=== PATIENT | female | born 1975 | race Hispanic/Latino ===

== ENCOUNTER 2017-01-19 07:57 | Day surgery (SDC) | payer OTHER ==
[2017-01-15 12:20] VITALS: BMI 27.3
[2017-01-19] MEDS ORDERED: Lactated Ringer's 1,000 ML IV ONE (08:35)
[2017-01-19] MEDS ORDERED: ACETIC ACID 3% 30 ML LIQUID MC ONE (10:02)
[2017-01-19] MEDS ORDERED: Strong Iodine Topical Sol. 5%-10% ONE (10:02)
[2017-01-19] MEDS ORDERED: Ferric Subsulfate Sol(60 mL) ONE (10:02)
[2017-01-19] MEDS ORDERED: Midazolam 2 MG/2 ML VIAL ONE (10:06)
[2017-01-19] MEDS ORDERED: Propofol 10 mg/ml Inj (20 ML) ONE (10:06)
[2017-01-19] MEDS ORDERED: Labetalol 5mg/ml (4ml) ONE (10:10)
--- NOTE | 2017-01-19 10:15 | CP.SDSHP ---
Same Day Surgery H & P - History Proposed Procedure: LEEP Pre-Op Diagnosis: cervical dysplasia - Allergies Allergies: Allergies No Known Allergies Allergy (Verified 01/15/17 12:20) - Physical Exam Vital Signs: Vital Signs 01/19/17 01/19/17 08:16 08:19 Temperature 98.7 F Pulse Rate 83 83 Respiratory 20 Rate Blood Pressure 126/63 O2 Sat by Pulse 96 Oximetry Mental Status: Alert & Oriented x3 Neuro: WNL Heart: WNL Lungs: WNL GI: WNL - {Optional Preform as Required} Breast: WNL Abdomen: WNL ACCOUNTING MACHINE OPERATOR: WNL - Impression Pt. Evaluated Today:Candidate for Anesthesia & Procedure: Yes - Date & Time Date: 01/19/17 Time: 10:14 Short Stay Discharge - Short Stay Discharge Admitting Diagnosis/Reason for Visit: R87.810 Referrals: FAMILY PROVIDER,NO [Primary Care Provider] - Follow-up: Pt to follow up in 2 wks in office
[2017-01-19] MEDS ORDERED: Strong Iodine Topical Sol. 5%-10% TOP ONE ×2 (11:02)
[2017-01-19] MEDS ORDERED: Ferric Subsulfate Sol(60 mL) TP ONE (11:17)
[2017-01-19] MEDS ORDERED: Lactated Ringer's 1,000 ML IV SCH (11:33)
[2017-01-19] MEDS ORDERED: Oxycodone/Acetaminophen 5/325 mg Tab PO PRN (11:33)
[2017-01-19] MEDS ORDERED: HYDROmorphone 0.5 mg/0.5 ml ISec IVP PRN (12:12)
[2017-01-19] MEDS ORDERED: HYDROmorphone 0.5 mg/0.5 ml ISec ONE (12:14)
[2017-01-19 12:18] VITALS: O2SAT 99
[2017-01-19 13:24] VITALS: BP 109/62; PULSE 62; RESP 18; TEMP 97.9
--- NOTE | 2017-01-20 03:09 | OP ---
PROCEDURE DATE: 01/19/2017 PREOPERATIVE DIAGNOSIS: Cervical dysplasia. POSTOPERATIVE DIAGNOSIS: Cervical dysplasia. PROCEDURE: LEEP procedure. SURGEON: Dr. Azra Petty. TYPE OF ANESTHESIA: LMA ANESTHESIA ADMINISTERED BY: Dr. Reza. TOTAL IV FLUID INTAKE: 500 mL of Lactated Ringer's. ESTIMATED BLOOD LOSS: 25 mL. URINE OUTPUT: 25 mL, clear urine. COMPLICATIONS: None. CONDITION: Stable. SPECIMEN: Ectocervix and endocervix with cyst at 12 o'clock positions. DESCRIPTION OF PROCEDURE: After all consents were signed and all questions answered, the patient was brought into the procedure room and placed in dorsal lithotomy position. Patient had IV fluids running and was placed under generalized anesthesia without difficulty. A grounding leg pad was placed on the patient's leg. Under sterile condition, an inflated speculum was placed in the patient's vagina. Smoke evacuator tubing was connected to the speculum. The Lugol solution was applied to the cervix to further outline the LEEP field. The LEEP unit was adjusted to blend the power setting. A LEEP loop of 20 mm x 15 mm with the use of the exocervix was selected. Specimen was removed and the cyst is placed at 10 o'clock position. An additional 10 mm x 10 mm endocervix was selected. The LEEP procedure was performed exercising the cone portion of the cervix extending beyond the margins of the Lugol's unstained area without issues and the specimen was placed in the formalin jar after tagging at 12 o'clock position. Bleeding was cauterized with ball-tip probe and Monsel solution. Bolus was about 25 mL. Reinspection of the cervix prior to terminating the procedure found the cervix to be hemostatic. All instruments were removed from the vagina. All counts are correct. The patient was awoken from anesthesia without difficulty, was taken to recovery room in stable condition. There were no other complications. Azra Petty MD
== END 2017-01-19 13:30 | disposition home or self-care (01) ==
LOC: H.OPSURG 07:57
PROVIDERS: ATTEND Obstetrics & Gynecology
DX: R87.810 Cervical high risk human papillomavirus (HPV) DNA test positive (principal)
CPT/HCPCS: 57522; 88305; J1170; J2250; J2405; J2704; J3010; J7030; J7120

== ENCOUNTER 2017-02-18 17:56 | Inpatient (IN) | payer OTHER ==
[2017-02-18 17:56] VITALS: BMI 27.3
--- NOTE | 2017-02-18 18:30 | ED PDOC ---
HPI: General Adult Time Seen by Provider: 02/18/17 18:08 Chief Complaint (Nursing): Fever Chief Complaint (Provider): Fever History Per: Patient Additional Complaint(s): 41 yo female, no PMH, presents to ED with complaints of fever, t.max, 103 x 2 weeks now. pt rpeorts that 2 weeks ago she underwent a Leep procedure, developed LLQ pain soon after and then followed up with her OB who prescribed her Doxy for 10 days. pt is on day 810 and pain has resolved; however, fevers, fatigue and body aches continue. Pt presented to urgent Care earlier today who gave her 2 Tyenol and advised ED visit. Past Medical History Reviewed: Nursing Documentation, Vital Signs Vital Signs: Last Vital Signs Temp 101.7 F H 02/18/17 18:03 Pulse 108 H 02/18/17 18:03 Resp 18 02/18/17 18:03 BP 109/65 02/18/17 18:03 Pulse Ox 97 02/18/17 18:34 - Medical History PMH: No Chronic Diseases Denies: Anemia, Chronic Kidney Disease - Family History Family History: States: Unknown Family Hx - Living Arrangements Living Arrangements: With Family - Social History Current smoker - smoking cessation education provided: No Alcohol: Social Drugs: Denies - Home Medications Home Medications: Ambulatory Orders Medication Instructions Recorded oxyCODONE/Acetaminophen [Percocet 1 mg PO Q4 PRN 01/19/17 5/325 mg Tab] - Allergies Allergies/Adverse Reactions: Allergies Allergy/AdvReac Type Severity Reaction Status Date / Time No Known Allergies Allergy Verified 02/18/17 18:01 Review of Systems ROS Statement: Except As Marked, All Systems Reviewed And Found Negative Constitutional: Positive for: Fever Physical Exam - Reviewed Nursing Documentation Reviewed: Yes Vital Signs Reviewed: Yes - Physical Exam Appears: Positive for: Well, Non-toxic, No Acute Distress Head Exam: Positive for: ATRAUMATIC, NORMAL INSPECTION, NORMOCEPHALIC Skin: Positive for: Normal Color, Warm, DRY Eye Exam: Positive for: EOMI, Normal appearance, PERRL ENT: Positive for: Normal ENT Inspection Neck: Positive for: Normal, Painless ROM Cardiovascular/Chest: Positive for: Regular Rate, Rhythm Respiratory: Positive for: CNT, Normal Breath Sounds Gastrointestinal/Abdominal: Positive for: Normal Exam, Bowel Sounds, Soft Back: Positive for: Normal Inspection Extremity: Positive for: Normal ROM Neurologic/Psych: Positive for: Alert, Oriented - Laboratory Results Result Diagrams: 02/18/17 18:30 02/18/17 18:54 - ECG O2 Sat by Pulse Oximetry: 97 Medical Decision Making Medical Decision Making: IV access established and diagnostics ordered Pt febrile at 101.7 Tachy at 108 WBC 21. 9 Lactate WNL K 3.0. Potassium IV and PO administered. IVF running. Pt meets SIRS criteria case enodrsed to [facility] at 1999 pending diagnotic review and re-eval. Disposition - Clinical Impression Clinical Impression: Fever - Patient ED Disposition Is Patient to be Admitted: Transfer of Care - Disposition Disposition: Transfer of Care Disposition Time: 20:00 Condition: FAIR Forms: [facility] (Serbian) - POA Present On Arrival: None
[2017-02-18] MEDS ORDERED: Sodium Chloride 0.9% 1,000 ML IV STA (18:31)
[2017-02-18 18:55] LABS: VENOUS BLOOD GAS PCO2 31 mmHg (40-60); VENOUS BLOOD PH 7.49 (7.32-7.43)
[2017-02-18 19:04] LABS: BASO % 0.2 % (0.0-2.0); HEMATOCRIT 28.4 % (34.0-47.0); LYMPH # 2.1 K/uL (1.0-4.3); LYMPH % 9.5 % (20.0-40.0); MEAN CELL VOLUME 84.4 fl (81.0-99.0); MEAN CORPUSCULAR HEMOGLOBIN 27.5 pg (27.0-31.0); MEAN CORPUSCULAR HGB CONC 32.6 g/dL (33.0-37.0); MEAN PLATELET VOLUME 6.9 fl (7.2-11.7); MONO # 1.4 K/uL (0.0-0.8); MONO % 6.2 % (0.0-10.0); NEUT # 18.4 K/uL (1.8-7.0); NEUT % 84.1 % (50.0-75.0); PLATELET COUNT 586 K/uL (130-400); RED CELL DISTRIBUTION WIDTH 16.4 % (11.5-14.5); WHITE BLOOD COUNT 21.9 K/uL (4.8-10.8)
[2017-02-18 19:10] LABS: ALB/GLOB RATIO 1.1 (1.0-2.1); ALKALINE PHOSPHATASE 139 U/L (38-126); ALT/SGPT 54 U/L (9-52); AST/SGOT 79 U/L (14-36); BILIRUBIN,TOTAL 0.7 mg/dl (0.2-1.3); BLOOD UREA NITROGEN 6 mg/dl (7-17); CALCIUM 9.3 mg/dL (8.4-10.2); CARBON DIOXIDE 23 mmol/L (22-30); CHLORIDE 97 mmol/L (98-107); GFR AFRICAN-AMERICAN > 60; GLUCOSE,RANDOM 106 mg/dL (65-105); SODIUM 136 mmol/l (132-148); TOTAL PROTEIN 7.1 G/DL (6.3-8.2)
[2017-02-18] MEDS ORDERED: Potassium Chloride 20 mEq ER Tab PO ONE ×2 (19:36→19:51)
[2017-02-18] MEDS ORDERED: Potassium CL 10 MEQ/50 ML 50 ML IVPB ONE (19:36)
[2017-02-18] MEDS ORDERED: Iohexol 240 (50 ml) PO ONE (19:37)
[2017-02-18] MEDS ORDERED: Iohexol 240 (50 ml) ONE (19:50)
[2017-02-18 21:02] LABS: LARGE PLATELETS PRESENT; NEUTROPHIL 87 % (42-75); TOTAL CELLS COUNTED 100
[2017-02-18 21:08] LABS: RBC URINE 2 /hpf (0-3); URINE BACTERIA RARE (<OCC); URINE BILIRUBIN NEGATIVE (NEGATIVE); URINE BLOOD NEGATIVE (NEGATIVE); URINE COLOR STRAW (YELLOW); URINE GLUCOSE (UA) NEG (Normal); URINE KETONE NEGATIVE (NEGATIVE); URINE LEUKOCYTE ESTERASE NEG Leu/uL (Negative); URINE PROTEIN NEGATIVE (NEGATIVE); URINE UROBILINOGEN 0.2-1.0 mg/dL (0.2-1.0); WBC URINE 2 /hpf (0-5)
[2017-02-18] MEDS ORDERED: Iohexol 300 100 ML IJ ONE (21:32)
[2017-02-18] MEDS ORDERED: Sodium Chloride 0.9% 50 ML IV ONE (21:33)
--- NOTE | 2017-02-18 22:16 | US ---
EXAM: US Pelvis Complete, Transabdominal CLINICAL HISTORY: 41 years old, female; Pain; Pelvic pain; Additional info: Pelvic pain S/P leep procedure TECHNIQUE: Real-time transabdominal pelvic ultrasound (complete) with image documentation. COMPARISON: No relevant prior studies available. FINDINGS: Uterus/cervix: Uterus measures 9.7 x 3.0 x 4.6 cm in size. No myometrial mass. Endometrium: 1.2 cm in thickness. Right ovary: 2.1 x 1.3 x 2.5 cm in size. No mass. Normal flow. Left ovary: 11.8 x 10.3 x 11.5 cm in size. 11.0 x 8.9 x 10.7 cm hypoechoic lesion with septations and internal echoes. Normal flow. Free fluid: No significant free fluid. Bladder: Unremarkable as visualized. IMPRESSION: 1. LEFT ovarian lesion, indeterminate. Given large size, suggest MRI or surgical evaluation.
--- NOTE | 2017-02-18 22:28 | ED PDOC ---
- Laboratory Results Result Diagrams: 02/18/17 18:30 02/18/17 18:54 - ECG O2 Sat by Pulse Oximetry: 97 - Radiology X-Ray: Viewed By Me X-Ray Interpretation: No Acute Disease - Progress ED Course And Treament: Case endorsed to sba underwriter from [employer] [employer]ERS pending labs, imaging EXAM: US Pelvis Complete, Transabdominal CLINICAL HISTORY: 41 years old, female; Pain; Pelvic pain; Additional info: Pelvic pain S/P leep procedure TECHNIQUE: Real-time transabdominal pelvic ultrasound (complete) with image documentation. COMPARISON: No relevant prior studies available. FINDINGS: Uterus/cervix: Uterus measures 9.7 x 3.0 x 4.6 cm in size. No myometrial mass. Endometrium: 1.2 cm in thickness. Right ovary: 2.1 x 1.3 x 2.5 cm in size. No mass. Normal flow. Left ovary: 11.8 x 10.3 x 11.5 cm in size. 11.0 x 8.9 x 10.7 cm hypoechoic lesion with septations and internal echoes. Normal flow. Free fluid: No significant free fluid. Bladder: Unremarkable as visualized. IMPRESSION: 1. LEFT ovarian lesion, indeterminate. Given large size, suggest MRI or surgical evaluation. EXAM: CT Abdomen and Pelvis With Intravenous Contrast CLINICAL HISTORY: 41 years old, female; Signs and symptoms; Fever; Prior surgery; Surgery date: 6 + months; Surgery type: Benign abd. Tumor removed in 2008; Patient HX: Benign tumor; Additional info: Fever and abdominal pain TECHNIQUE: Axial computed tomography images of the abdomen and pelvis with intravenous contrast. All CT scans at this facility use one or more dose reduction techniques, viz.: automated exposure control; ma/kV adjustment per patient size (including targeted exams where dose is matched to indication; i.e. head); or iterative reconstruction technique. Coronal and sagittal reformatted images were created and reviewed. CONTRAST: 90 mL of [id number] administered intravenously. COMPARISON: CT - ABDOMEN^ABD_ROUTINE_WO_W (ADULT) 12/28/2008 12:30:30 PM FINDINGS: Lower thorax: No acute findings. ABDOMEN: Liver: Few too small to characterize lesions, new in interval. Gallbladder and bile ducts: No calcified stones. No ductal dilation. Pancreas: No ductal dilation. No mass. Spleen: No splenomegaly. Adrenals: No mass. Kidneys and ureters: No mass. No hydronephrosis. Stomach and bowel: No definite mural thickening. No obstruction. Appendix: Normal caliber. No inflammation. PELVIS: Bladder: Unremarkable. Reproductive: 10.0 x 10.5 x 11.4 cm septated hypodense lesion with peripheral enhancement within LEFT adnexal region. Adjacent tubular structure with peripheral enhancement with apparent communication with aforementioned lesion. ABDOMEN and PELVIS: Intraperitoneal space: Trace free fluid within pelvis. No free air. Bones/joints: No acute fracture. Soft tissues: Unremarkable. Vasculature: Postsurgical changes about IVC. No aneurysm. Lymph nodes: Borderline enlarged lymph node within paraaortic region. IMPRESSION: 1. LEFT adnexal lesion, indeterminate. DDX: Hemorrhagic cyst, endometrioma, TOA , neoplasm. Adjacent tubular structure which may represent dilated fallopian tube may favor TOA. Gynecological consultation is recommended. 2. Liver lesions, new in interval. Suggest MRI. 3. Incidental/non-acute findings are described above. Case discussed with Dr. Rosas, Forest [employer] Instructor on-call; recommends IV antibiotics and admission. IV doxycycline, IV cefoxitin doses ordered in ED. Disposition - Clinical Impression Clinical Impression: TOA (tubo-ovarian abscess), Ovarian cyst - POA Present On Arrival: None - Disposition Disposition: Admitted as In-Patient Disposition Time: 00:20 Condition: FAIR
--- NOTE | 2017-02-18 23:30 | CT ---
EXAM: CT Abdomen and Pelvis With Intravenous Contrast CLINICAL HISTORY: 41 years old, female; Signs and symptoms; Fever; Prior surgery; Surgery date: 6+ months; Surgery type: Benign abd. Tumor removed in 2008; Patient HX: Benign tumor; Additional info: Fever and abdominal pain TECHNIQUE: Axial computed tomography images of the abdomen and pelvis with intravenous contrast. All CT scans at this facility use one or more dose reduction techniques, viz.: automated exposure control; ma/kV adjustment per patient size (including targeted exams where dose is matched to indication; i.e. head); or iterative reconstruction technique. Coronal and sagittal reformatted images were created and reviewed. CONTRAST: 90 mL of [id number] administered intravenously. COMPARISON: CT - ABDOMEN^ABD ROUTINE WO W (ADULT) 12/28/2008 12:30:30 PM FINDINGS: Lower thorax: No acute findings. ABDOMEN: Liver: Few too small to characterize lesions, new in interval. Gallbladder and bile ducts: No calcified stones. No ductal dilation. Pancreas: No ductal dilation. No mass. Spleen: No splenomegaly. Adrenals: No mass. Kidneys and ureters: No mass. No hydronephrosis. Stomach and bowel: No definite mural thickening. No obstruction. Appendix: Normal caliber. No inflammation. PELVIS: Bladder: Unremarkable. Reproductive: 10.0 x 10.5 x 11.4 cm septated hypodense lesion with peripheral enhancement within LEFT adnexal region. Adjacent tubular structure with peripheral enhancement with apparent communication with aforementioned lesion. ABDOMEN and PELVIS: Intraperitoneal space: Trace free fluid within pelvis. No free air. Bones/joints: No acute fracture. Soft tissues: Unremarkable. Vasculature: Postsurgical changes about IVC. No aneurysm. Lymph nodes: Borderline enlarged lymph node within paraaortic region. IMPRESSION: 1. LEFT adnexal lesion, indeterminate. DDX: Hemorrhagic cyst, endometrioma, TOA, neoplasm. Adjacent tubular structure which may represent dilated fallopian tube may favor TOA. Gynecological consultation is recommended. 2. Liver lesions, new in interval. Suggest MRI. 3. Incidental/non-acute findings are described above.
[2017-02-18] MEDS ORDERED: cefOXitin 2 GM in Sodium Chloride 0.9% 100 ML IVPB STA (23:45)
--- NOTE | 2017-02-19 00:14 | CP.PCM.HP ---
History of Present Illness - History of Present Illness History of Present Illness: The patient is a 41-year-old female who presents to her [facility] complaining of fever of 103 for several days' duration. Patient states she had a LEEP procedure done on January 19 states she felt well had a postoperative visit which was normal. Patient states she is undergoing fertility treatment underwent a transvaginal sonogram started to develop lower abdominal pain. Patient states that after she started to develop low grade temperatures and fever. Patient states her PMD was prescribed doxycycline patient states fever has persisted so she presented to the emergency room this evening Present on Admission - Present on Admission Any Indicators Present on Admission: No Past Patient History - Past Medical History & Family History Past Medical History?: Yes - Past Social History Alcohol: Social Drugs: Denies - CARDIAC Hx Cardiac Disorders: No - PULMONARY Hx Respiratory Disorders: No - NEUROLOGICAL Hx Neurological Disorder: No - HEENT Hx HEENT Problems: No - RENAL Hx Chronic Kidney Disease: No - ENDOCRINE/METABOLIC Hx Endocrine Disorders: No - HEMATOLOGICAL/ONCOLOGICAL Hx Anemia: No - INTEGUMENTARY Hx Dermatological Problems: No - MUSCULOSKELETAL/RHEUMATOLOGICAL Hx Musculoskeletal Disorders: No - GASTROINTESTINAL Hx Gastrointestinal Disorders: No - GENITOURINARY/GYNECOLOGICAL Hx Genitourinary Disorders: No - PSYCHIATRIC Hx Psychophysiologic Disorder: No Hx Substance Use: No - SURGICAL HISTORY Hx Surgeries: Yes Other/Comment: REMOVAL OF ABDOMINAL TUMOR-2002 - ANESTHESIA Hx Anesthesia: Yes Hx Anesthesia Reactions: No Hx Malignant Hyperthermia: No Meds Allergies/Adverse Reactions: Allergies Allergy/AdvReac Type Severity Reaction Status Date / Time No Known Allergies Allergy Verified 02/18/17 18:01 Physical Exam - Respiratory Exam Respiratory Exam: Clear to Auscultation Bilateral - Cardiovascular Exam Cardiovascular Exam: REGULAR RHYTHM - GI/Abdominal Exam GI & Abdominal Exam: Normal Bowel Sounds, Soft - Exam Speculum exam: Cervical Discharge Additional comments: No adnexal fullness and tenderness copious creamy vaginal discharge - Extremities Exam Extremities exam: Positive for: normal inspection Results - Vital Signs Recent Vital Signs: Last Vital Signs Temp 98.4 F 02/18/17 21:56 Pulse 108 H 02/18/17 18:03 Resp 18 02/18/17 18:03 BP 109/65 02/18/17 18:03 Pulse Ox 97 02/19/17 00:10 - Labs Result Diagrams: 02/18/17 18:30 02/18/17 18:54 Labs: Laboratory Results - last 24 hr 02/18/17 02/18/17 02/18/17 18:30 18:48 18:54 WBC 21.9 H RBC 3.36 L Hgb 9.2 L Hct 28.4 L MCV 84.4 MCH 27.5 MCHC 32.6 L RDW 16.4 H Plt Count 586 H MPV 6.9 L Neut % (Auto) 84.1 H Lymph % (Auto) 9.5 L [place] % (Auto) 6.2 Eos % (Auto) 0.0 Baso % (Auto) 0.2 Neut # 18.4 H Lymph # 2.1 [place] # 1.4 H Eos # 0.0 Baso # 0.0 Neutrophils % (Manual) 87 H Band Neutrophils % 1 Lymphocytes % (Manual) 8 L Monocytes % (Manual) 4 Platelet Estimate Markedly increased H Large Platelets Present Hypochromasia (manual) Slight Poikilocytosis (manual Moderate Anisocytosis (manual) Moderate Microcytosis (manual) Slight pO2 50 VBG pH 7.49 H VBG pCO2 31 L VBG HCO3 25.5 VBG Total CO2 24.6 VBG O2 Sat (Calc) 89.5 H VBG Base Excess 1.0 VBG Potassium 3.0 L Sodium 131.0 L 136 Chloride 97.0 L 97 L Glucose 113 H Lactate 0.8 FiO2 21.0 Potassium 3.0 L Carbon Dioxide 23 Anion Gap 19 BUN 6 L Creatinine 0.7 Est GFR ( Amer) > 60 Est GFR (Non-Af Amer) > 60 Random Glucose 106 H Calcium 9.3 Total Bilirubin 0.7 AST 79 H ALT 54 H Alkaline Phosphatase 139 H Total Protein 7.1 Albumin 3.7 Globulin 3.4 Albumin/Globulin Ratio 1.1 Venous Blood Potassium 3.0 L Urine Color Urine Clarity Urine pH Ur Specific [place] Urine Protein Urine Glucose (UA) Urine Ketones Urine Blood Urine Nitrate Urine Bilirubin Urine Urobilinogen Ur Leukocyte Esterase Urine RBC (Auto) Urine Microscopic WBC Ur Squamous Epith Cells Urine Bacteria Influenza Typ A,B (EIA) 02/18/17 02/18/17 20:26 20:35 WBC RBC Hgb Hct MCV MCH MCHC RDW Plt Count MPV Neut % (Auto) Lymph % (Auto) [place] % (Auto) Eos % (Auto) Baso % (Auto) Neut # Lymph # [place] # Eos # Baso # Neutrophils % (Manual) Band Neutrophils % Lymphocytes % (Manual) Monocytes % (Manual) Platelet Estimate Large Platelets Hypochromasia (manual) Poikilocytosis (manual Anisocytosis (manual) Microcytosis (manual) pO2 VBG pH VBG pCO2 VBG HCO3 VBG Total CO2 VBG O2 Sat (Calc) VBG Base Excess VBG Potassium Sodium Chloride Glucose Lactate FiO2 Potassium Carbon Dioxide Anion Gap BUN Creatinine Est GFR ( Amer) Est GFR (Non-Af Amer) Random Glucose Calcium Total Bilirubin AST ALT Alkaline Phosphatase Total Protein Albumin Globulin Albumin/Globulin Ratio Venous Blood Potassium Urine Color Straw Urine Clarity Clear Urine pH 7.0 Ur Specific [place] < 1.005 Urine Protein Negative Urine Glucose (UA) Neg Urine Ketones Negative Urine Blood Negative Urine Nitrate Negative Urine Bilirubin Negative Urine Urobilinogen 0.2-1.0 Ur Leukocyte Esterase Neg Urine RBC (Auto) 2 Urine Microscopic WBC 2 Ur Squamous Epith Cells 1 Urine Bacteria Rare Influenza Typ A,B (EIA) Negative for flu a/b Assessment & Plan - Assessment and Plan (Free Text) Assessment: 41-year-old female with tubo-ovarian abscess Genital cultures obtained IV antibiotics Plan conservative management - Date & Time Date: 02/19/17 Time: 00:15
[2017-02-19] MEDS ORDERED: Oxycodone/Acetaminophen 5/325 mg Tab PO PRN (00:26)
[2017-02-19] MEDS ORDERED: Lactated Ringer's 1,000 ML IV SCH (00:30)
[2017-02-19 00:50] LABS: VENOUS BLOOD GAS BASE EXCESS -0.1 mmol/L (0.0-2.0); VENOUS BLOOD GAS PCO2 36 mmHg (40-60); VENOUS BLOOD PH 7.43 (7.32-7.43)
[2017-02-19] MEDS: Lactated Ringer's 1,000 ML IV SCH (01:41)
[2017-02-19] MEDS ORDERED: cefOXitin Sodium 1 GM in Sodium Chloride 0.9% 100 ML IVPB SCH (04:00)
--- NOTE | 2017-02-19 08:30 | RAD ---
HISTORY: Medical screening. COMPARISON: No prior. TECHNIQUE: Chest PA and lateral FINDINGS: LUNGS: No active pulmonary disease. PLEURA: No significant pleural effusion identified. No pneumothorax apparent. CARDIOVASCULAR: Normal. OSSEOUS STRUCTURES: No significant abnormalities. VISUALIZED UPPER ABDOMEN: Normal. OTHER FINDINGS: None. IMPRESSION: No active disease. Please note: No preliminary report/ innterpretation of this examination provided by emergency department personnel.
[2017-02-19] MEDS: cefOXitin Sodium 1 GM in Sodium Chloride 0.9% 100 ML IVPB SCH ×3 (09:11→21:42)
--- NOTE | 2017-02-19 09:22 | CP.PCM.PN ---
Subjective - Date & Time of Evaluation Date of Evaluation: 02/19/17 Time of Evaluation: 09:20 - Subjective Subjective: Pt is tolerating regular diet, ambulating, denies pain and wants to go home Objective - Vital Signs/Intake and Output Vital Signs (last 24 hours): Temp Pulse Resp BP Pulse Ox 98.2 F 91 H 18 109/66 97 02/19/17 07:43 02/19/17 07:43 02/19/17 07:43 02/19/17 07:43 02/19/17 07:43 - Medications Medications: Current Medications Acetaminophen (Tylenol 325mg Tab) 650 mg PO Q4 PRN PRN Reason: Fever >100.4 F Doxycycline Hyclate 100 mg/ (Sodium Chloride) 100 mls @ 100 mls/hr IVPB Q12 [facility] Last Admin: 02/19/17 01:52 Dose: Not Given Lactated Ringer's (Lactated Ringer's 500ml) 1,000 mls @ 125 mls/hr IV .Q8H [facility] Last Admin: 02/19/17 01:41 Dose: 125 mls/hr Cefoxitin Sodium 1 gm/ Sodium (Chloride) 100 mls @ 100 mls/hr IVPB 0200,0800, 1400,2000 [facility] Stop: 02/19/17 20:59 Last Admin: 02/19/17 09:11 Dose: 100 mls/hr Oxycodone/Acetaminophen (Percocet 5/325 Mg Tab) 1 tab PO Q4 PRN PRN Reason: Pain, Mild (1-3) Stop: 02/22/17 00:27 - Labs Labs: 02/18/17 18:30 02/18/17 18:54 - Constitutional Appears: Well, Non-toxic - GI/Abdominal Exam GI & Abdominal Exam: Soft, Normal Bowel Sounds Additional comments: Nontender - Extremities Exam Additional comments: Nontender Assessment and Plan - Assessment and Plan (Free Text) Assessment: 41 yo admitted w/ fever and TOA receiving IV cefoxitin and Doxycycline Pt is tolerating regular diet
[2017-02-19 09:39] LABS: MEAN CELL VOLUME 84.6 fl (81.0-99.0); MEAN CORPUSCULAR HEMOGLOBIN 28.2 pg (27.0-31.0); MEAN CORPUSCULAR HGB CONC 33.3 g/dL (33.0-37.0); RED CELL DISTRIBUTION WIDTH 16.4 % (11.5-14.5); WHITE BLOOD COUNT 16.8 K/uL (4.8-10.8)
[2017-02-20] MEDS: Lactated Ringer's 1,000 ML IV SCH ×2 (01:53→09:52)
--- NOTE | 2017-02-20 11:56 | CP.PCM.PN ---
Subjective - Date & Time of Evaluation Date of Evaluation: 02/20/17 Time of Evaluation: 10:30 - Subjective Subjective: She feels fine ex for chills last night when she had fever 100.6 and 100.9. Tolerating po intake. No abd pain Objective - Vital Signs/Intake and Output Vital Signs (last 24 hours): Temp Pulse Resp BP Pulse Ox 98.5 F 77 20 97/65 L 99 02/20/17 08:32 02/20/17 08:32 02/20/17 08:32 02/20/17 08:32 02/20/17 08:32 - Medications Medications: Current Medications Acetaminophen (Tylenol 325mg Tab) 650 mg PO Q4 PRN PRN Reason: Fever >100.4 F Last Admin: 02/20/17 00:28 Dose: 650 mg Doxycycline Hyclate 100 mg/ (Sodium Chloride) 100 mls @ 100 mls/hr IVPB Q12 [facility] Last Admin: 02/20/17 08:23 Dose: 100 mls/hr Lactated Ringer's (Lactated Ringer's 500ml) 1,000 mls @ 125 mls/hr IV .Q8H [facility] Last Admin: 02/20/17 09:52 Dose: Not Given Oxycodone/Acetaminophen (Percocet 5/325 Mg Tab) 1 tab PO Q4 PRN PRN Reason: Pain, Mild (1-3) Stop: 02/22/17 00:27 - Labs Labs: 02/19/17 08:00 02/18/17 18:54 - Constitutional Appears: Non-toxic - Head Exam Head Exam: NORMAL INSPECTION - Respiratory Exam Respiratory Exam: NORMAL BREATHING PATTERN - GI/Abdominal Exam GI & Abdominal Exam: Soft. absent: Tenderness Assessment and Plan (1) Pelvic mass in female Status: Acute - Assessment and Plan (Free Text) Assessment: TOA vs endometrioma Fever Plan: On IV antibotics...will obtain ID consultation and check CBC today...Will speak with Shira Chu with patient about plan. She understands and agrees
[2017-02-20 12:28] LABS: BASO % 0.4 % (0.0-2.0); EOS % 0.3 % (0.0-4.0); HEMATOCRIT 28.8 % (34.0-47.0); LYMPH # 1.7 K/uL (1.0-4.3); LYMPH % 13.6 % (20.0-40.0); MEAN CELL VOLUME 84.6 fl (81.0-99.0); MEAN CORPUSCULAR HEMOGLOBIN 27.6 pg (27.0-31.0); MEAN CORPUSCULAR HGB CONC 32.6 g/dL (33.0-37.0); MEAN PLATELET VOLUME 6.4 fl (7.2-11.7); MONO # 0.8 K/uL (0.0-0.8); MONO % 6.3 % (0.0-10.0); NEUT # 10.1 K/uL (1.8-7.0); NEUT % 79.4 % (50.0-75.0); RED CELL DISTRIBUTION WIDTH 16.3 % (11.5-14.5); WHITE BLOOD COUNT 12.8 K/uL (4.8-10.8)
--- NOTE | 2017-02-20 13:03 | CP.PCM.CON ---
History of Present Illness - History of Present Illness History of Present Illness: Infectious Disease Consult Note- asked to see this patient at the request of staff counsel for help with antibiotic management in ? TOA. 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 Pt. states past few days she has had no appetite but today she feels better and did eat some food. pt. had CT done which as per report shows ? TOA and hence i'm asked to help with antibiotic management. denies any nausea. Allergy- NKDA Review of Systems - Review of Systems Review of Systems: ROS- + fever and chills , ahd nausea but not now, denies any cough, denies any sob, denies any chest pain, + lower abd/pelvic pain , denies any diarrhea, denies any dysurea, + vaginal discharge Past Patient History - Past Medical History & Family History Past Medical History?: Yes - Past Social History Smoking Status: Never Smoked Alcohol: Occasional Drugs: Denies - CARDIAC Hx Cardiac Disorders: No - PULMONARY Hx Respiratory Disorders: No - NEUROLOGICAL Hx Neurological Disorder: No - HEENT Hx HEENT Problems: No - RENAL Hx Chronic Kidney Disease: No - ENDOCRINE/METABOLIC Hx Endocrine Disorders: No - HEMATOLOGICAL/ONCOLOGICAL Hx Blood Disorders: No - INTEGUMENTARY Hx Dermatological Problems: No - MUSCULOSKELETAL/RHEUMATOLOGICAL Hx Falls: No - GASTROINTESTINAL Hx Gastrointestinal Disorders: No - GENITOURINARY/GYNECOLOGICAL Hx Genitourinary Disorders: No - PSYCHIATRIC Hx Substance Use: No - SURGICAL HISTORY Hx Surgeries: Yes Other/Comment: REMOVAL OF ABDOMINAL TUMOR-2002 - ANESTHESIA Hx Anesthesia: Yes Hx Anesthesia Reactions: No Hx Malignant Hyperthermia: No Meds Allergies/Adverse Reactions: Allergies Allergy/AdvReac Type Severity Reaction Status Date / Time No Known Allergies Allergy Verified 02/18/17 18:01 - Medications Medications: Current Medications Acetaminophen (Tylenol 325mg Tab) 650 mg PO Q4 PRN PRN Reason: Fever >100.4 F Last Admin: 02/20/17 00:28 Dose: 650 mg Doxycycline Hyclate 100 mg/ (Sodium Chloride) 100 mls @ 100 mls/hr IVPB Q12 [facility] Last Admin: 02/20/17 08:23 Dose: 100 mls/hr Lactated Ringer's (Lactated Ringer's 500ml) 1,000 mls @ 125 mls/hr IV .Q8H [facility] Last Admin: 02/20/17 09:52 Dose: Not Given Oxycodone/Acetaminophen (Percocet 5/325 Mg Tab) 1 tab PO Q4 PRN PRN Reason: Pain, Mild (1-3) Stop: 02/22/17 00:27 Physical Exam - Constitutional Appears: No Acute Distress - Head Exam Head Exam: ATRAUMATIC - Eye Exam Eye Exam: EOMI, PERRL - ENT Exam ENT Exam: Normal Oropharynx - Neck Exam Neck exam: Positive for: Full Rom - Respiratory Exam Respiratory Exam: Clear to Auscultation Bilateral, NORMAL BREATHING PATTERN - Cardiovascular Exam Cardiovascular Exam: RRR, +S1, +S2 - GI/Abdominal Exam GI & Abdominal Exam: Normal Bowel Sounds, Soft Additional comments: old mid-abdominal surgical scar suprapelvic region with distention and mild tenderness to plapation No guarding, no rebound - Extremities Exam Extremities exam: Positive for: normal inspection - Neurological Exam Neurological exam: Alert, Oriented x3 Results - Vital Signs Recent Vital Signs: Last Vital Signs Temp 98.5 F 02/20/17 08:32 Pulse 77 02/20/17 08:32 Resp 20 02/20/17 08:32 BP 97/65 L 02/20/17 08:32 Pulse Ox 99 02/20/17 08:32 - Labs Result Diagrams: 02/20/17 12:00 02/18/17 18:54 Labs: Laboratory Results - last 24 hr 02/20/17 12:00 WBC 12.8 H RBC 3.41 L Hgb 9.4 L Hct 28.8 L MCV 84.6 MCH 27.6 MCHC 32.6 L RDW 16.3 H Plt Count 593 H MPV 6.4 L Neut % (Auto) 79.4 H Lymph % (Auto) 13.6 L Quay % (Auto) 6.3 Eos % (Auto) 0.3 Baso % (Auto) 0.4 Neut # 10.1 H Lymph # 1.7 Quay # 0.8 Eos # 0.0 Baso # 0.0 Laboratory Results - last 72 hr 02/18/17 02/18/17 02/18/17 18:30 18:48 18:54 WBC 21.9 H RBC 3.36 L Hgb 9.2 L Hct 28.4 L MCV 84.4 MCH 27.5 MCHC 32.6 L RDW 16.4 H Plt Count 586 H MPV 6.9 L Neut % (Auto) 84.1 H Lymph % (Auto) 9.5 L Quay % (Auto) 6.2 Eos % (Auto) 0.0 Baso % (Auto) 0.2 Neut # 18.4 H Lymph # 2.1 Quay # 1.4 H Eos # 0.0 Baso # 0.0 Neutrophils % (Manual) 87 H Band Neutrophils % 1 Lymphocytes % (Manual) 8 L Monocytes % (Manual) 4 Platelet Estimate Markedly increased H Large Platelets Present Hypochromasia (manual) Slight Poikilocytosis (manual Moderate Anisocytosis (manual) Moderate Microcytosis (manual) Slight pO2 50 VBG pH 7.49 H VBG pCO2 31 L VBG HCO3 25.5 VBG Total CO2 24.6 VBG O2 Sat (Calc) 89.5 H VBG Base Excess 1.0 VBG Potassium 3.0 L Sodium 131.0 L 136 Chloride 97.0 L 97 L Glucose 113 H Lactate 0.8 FiO2 21.0 Potassium 3.0 L Carbon Dioxide 23 Anion Gap 19 BUN 6 L Creatinine 0.7 Est GFR ( Amer) > 60 Est GFR (Non-Af Amer) > 60 Random Glucose 106 H Calcium 9.3 Total Bilirubin 0.7 AST 79 H ALT 54 H Alkaline Phosphatase 139 H Total Protein 7.1 Albumin 3.7 Globulin 3.4 Albumin/Globulin Ratio 1.1 Venous Blood Potassium 3.0 L Urine Color Urine Clarity Urine pH Ur Specific Stanton Urine Protein Urine Glucose (UA) Urine Ketones Urine Blood Urine Nitrate Urine Bilirubin Urine Urobilinogen Ur Leukocyte Esterase Urine RBC (Auto) Urine Microscopic WBC Ur Squamous Epith Cells Urine Bacteria Influenza Typ A,B (EIA) 02/18/17 02/18/17 02/19/17 20:26 20:35 00:41 WBC RBC Hgb Hct MCV MCH MCHC RDW Plt Count MPV Neut % (Auto) Lymph % (Auto) Quay % (Auto) Eos % (Auto) Baso % (Auto) Neut # Lymph # Quay # Eos # Baso # Neutrophils % (Manual) Band Neutrophils % Lymphocytes % (Manual) Monocytes % (Manual) Platelet Estimate Large Platelets Hypochromasia (manual) Poikilocytosis (manual Anisocytosis (manual) Microcytosis (manual) pO2 37 VBG pH 7.43 VBG pCO2 36 L VBG HCO3 24.2 VBG Total CO2 25.0 VBG O2 Sat (Calc) 71.5 H VBG Base Excess -0.1 L VBG Potassium 3.4 L Sodium 133.0 Chloride 102.0 Glucose 109 H Lactate 0.8 FiO2 21.0 Potassium Carbon Dioxide Anion Gap BUN Creatinine Est GFR ( Amer) Est GFR (Non-Af Amer) Random Glucose Calcium Total Bilirubin AST ALT Alkaline Phosphatase Total Protein Albumin Globulin Albumin/Globulin Ratio Venous Blood Potassium 3.4 L Urine Color Straw Urine Clarity Clear Urine pH 7.0 Ur Specific Stanton < 1.005 Urine Protein Negative Urine Glucose (UA) Neg Urine Ketones Negative Urine Blood Negative Urine Nitrate Negative Urine Bilirubin Negative Urine Urobilinogen 0.2-1.0 Ur Leukocyte Esterase Neg Urine RBC (Auto) 2 Urine Microscopic WBC 2 Ur Squamous Epith Cells 1 Urine Bacteria Rare Influenza Typ A,B (EIA) Negative for flu a/b 02/19/17 02/20/17 08:00 12:00 WBC 16.8 H 12.8 H RBC 3.31 L 3.41 L Hgb 9.3 L 9.4 L Hct 28.0 L 28.8 L MCV 84.6 84.6 MCH 28.2 27.6 MCHC 33.3 32.6 L RDW 16.4 H 16.3 H Plt Count 546 H 593 H MPV 6.4 L Neut % (Auto) 79.4 H Lymph % (Auto) 13.6 L Quay % (Auto) 6.3 Eos % (Auto) 0.3 Baso % (Auto) 0.4 Neut # 10.1 H Lymph # 1.7 Quay # 0.8 Eos # 0.0 Baso # 0.0 Neutrophils % (Manual) Band Neutrophils % Lymphocytes % (Manual) Monocytes % (Manual) Platelet Estimate Large Platelets Hypochromasia (manual) Poikilocytosis (manual Anisocytosis (manual) Microcytosis (manual) pO2 VBG pH VBG pCO2 VBG HCO3 VBG Total CO2 VBG O2 Sat (Calc) VBG Base Excess VBG Potassium Sodium Chloride Glucose Lactate FiO2 Potassium Carbon Dioxide Anion Gap BUN Creatinine Est GFR ( Amer) Est GFR (Non-Af Amer) Random Glucose Calcium Total Bilirubin AST ALT Alkaline Phosphatase Total Protein Albumin Globulin Albumin/Globulin Ratio Venous Blood Potassium Urine Color Urine Clarity Urine pH Ur Specific Stanton Urine Protein Urine Glucose (UA) Urine Ketones Urine Blood Urine Nitrate Urine Bilirubin Urine Urobilinogen Ur Leukocyte Esterase Urine RBC (Auto) Urine Microscopic WBC Ur Squamous Epith Cells Urine Bacteria Influenza Typ A,B (EIA) Microbiology 02/19/17 00:15 Vaginal Gram Stain - Preliminary 02/18/17 20:26 Urine,Clean Catch Urine Culture - Final No Growth (<1,000 CFU/ML) 02/18/17 20:00 Blood-Venous Blood Culture - Preliminary NO GROWTH AFTER 24 HOURS 02/18/17 18:30 Blood Blood Culture - Preliminary NO GROWTH AFTER 24 HOURS Accession No. : [id number] Patient Name / ID : KING LCAYTON Haro / [id number] Exam Date : 02/19/2017 00:06:42 ( Approved ) Study Comment : Sex / Age : F / 41Y Creator : Morgan Styles MD Dictator : Morgan Styles MD Maple Syrup Maker : Commercial Real Estate Appraiser : Morgan Styles MD Approver2 : Report Date : 02/19/2017 08:28:31 My Comment : HISTORY: Medical screening. COMPARISON: No prior. TECHNIQUE: Chest PA and lateral FINDINGS: LUNGS: No active pulmonary disease. PLEURA: No significant pleural effusion identified. No pneumothorax apparent. CARDIOVASCULAR: Normal. OSSEOUS STRUCTURES: No significant abnormalities. VISUALIZED UPPER ABDOMEN: Normal. OTHER FINDINGS: None. IMPRESSION: No active disease. Accession No. : [id number] Patient Name / ID : KING CLAYTON Haro / [id number] Exam Date : 02/18/2017 22:43:30 ( Approved ) Study Comment : Sex / Age : F / 41Y Creator : Jose Angel Lau MD Dictator : Maple Syrup Maker : Commercial Real Estate Appraiser : Jose Angel Lau MD Approver2 : Report Date : 02/18/2017 23:30:00 My Comment : [facility] Division of Radiology [address] [place] [address] Tel. no. Patient Name: CLAYTON VORA Pt. Address: [address] [place] [address] Rec #: [id number] [place] [address]: Candace Garcia Pt CELL Order Location: [facility] : 1975 Female Age: 41 Order #: [id number] Reason for exam: fever and abdominal pain CT Scan ABD PELVIS PO IV CONTRAST Exam Date: 02/18/17 This imaging exam was performed at [facility] (Formerly [facility]) EXAM: CT Abdomen and Pelvis With Intravenous Contrast CLINICAL HISTORY: 41 years old, female; Signs and symptoms; Fever; Prior surgery; Surgery date : 6+ months; Surgery type: Benign abd. Tumor removed in 2008; Patient HX: Benign tumor; Additional info: Fever and abdominal pain TECHNIQUE: Axial computed tomography images of the abdomen and pelvis with intravenous contrast. All CT scans at this facility use one or more dose reduction techniques, viz.: automated exposure control; ma/kV adjustment per patient size (including targeted exams where dose is matched to indication; i.e. head); or iterative reconstruction technique. Coronal and sagittal reformatted images were created and reviewed. CONTRAST: 90 mL of administered intravenously. COMPARISON: CT - ABDOMEN ABD ROUTINE WO W (ADULT) 12/28/2008 12:30:30 PM FINDINGS: Lower thorax: No acute findings. ABDOMEN: Liver: Few too small to characterize lesions, new in interval. Gallbladder and bile ducts: No calcified stones. No ductal dilation. Pancreas: No ductal dilation. No mass. Spleen: No splenomegaly. Adrenals: No mass. Kidneys and ureters: No mass. No hydronephrosis. Stomach and bowel: No definite mural thickening. No obstruction. Appendix: Normal caliber. No inflammation. PELVIS: Bladder: Unremarkable. Reproductive: 10.0 x 10.5 x 11.4 cm septated hypodense lesion with peripheral enhancement within LEFT adnexal region. Adjacent tubular structure with peripheral enhancement with apparent communication with aforementioned lesion. ABDOMEN and PELVIS: Intraperitoneal space: Trace free fluid within pelvis. No free air. Bones/joints: No acute fracture. Soft tissues: Unremarkable. Vasculature: Postsurgical changes about IVC. No aneurysm. Lymph nodes: Borderline enlarged lymph node within paraaortic region. IMPRESSION: 1. LEFT adnexal lesion, indeterminate. DDX: Hemorrhagic cyst, endometrioma, TOA, neoplasm. Adjacent tubular structure which may represent dilated fallopian tube may favor TOA. Gynecological consultation is recommended. 2. Liver lesions, new in interval. Suggest MRI. 3. Incidental/non-acute findings are described above. Dictated By: Jose Angel Lau MD Dictated Date/Time: 02/18/172329 Signed By: Jose Angel Lau MD Date Signed: [id number] Transcribed By: AMBAR Transcribe Date/Time : 02/18/172329 ACYP02/GEOVANNY Assessment & Plan (1) Pelvic mass in female Status: Acute (2) TOA (tubo-ovarian abscess) Status: Acute (3) Fever Status: Acute (4) Ovarian cyst Status: Acute (5) Leukocytosis Status: Acute - Assessment and Plan (Free Text) Assessment: A/P- 41 year old female with recent LEEP procedure and also recent saline trnsvaginal US done by her Infertility doctor admitted with fever and leukocytosis and vaginal discharge and pelvic pain. clinically seems to be better. still spiking fever of up to 102 blood cx- neg x 2 urine cx- neg leukocytosis trending down Ct report 1. LEFT adnexal lesion, indeterminate. DDX: Hemorrhagic cyst, endometrioma, TOA, neoplasm. Adjacent tubular structure which may represent dilated fallopian tube may favor TOA. Gynecological consultation is recommended. 2. Liver lesions, new in interval. Suggest MRI. 3. Incidental/non-acute findings are described above. A/P- above reaction perhaps secondary to the saline . certainly TOA is a possibility and would advise to continue with the doxycycline , and would also advise to add IV meropnem to cover for anerobes and gram negatives. check vaginal cx. check urien GC/chlmydia. she will need closer evaluation of the left adnexal lesion , perhaps possible Bx to rule out malignancy if it does not resolve with IV antibiotics. all above d/w patient and she verbalizes full understanding of all above. also d/w . Thank you for allowing me to take part in the care of this patient.
--- NOTE | 2017-02-20 19:54 | CP.PCM.DIS ---
Provider - Provider Date of Admission: 02/19/17 00:07 Attending physician: Keke Rosas MD Hospital Course - Lab Results Lab Results: Micro Results 02/18/17 18:30 Blood Blood Culture - Preliminary NO GROWTH AFTER 48 HOURS 02/19/17 00:15 Vaginal Gram Stain - Preliminary 02/18/17 20:26 Urine,Clean Catch Urine Culture - Final No Growth (<1,000 CFU/ML) 02/18/17 20:00 Blood-Venous Blood Culture - Preliminary NO GROWTH AFTER 24 HOURS Most Recent Lab Values WBC 12.8 K/uL (4.8-10.8) H 02/20/17 12:00 RBC 3.41 Mil/uL (3.80-5.20) L 02/20/17 12:00 Hgb 9.4 g/dL (12.0-16.0) L 02/20/17 12:00 Hct 28.8 % (34.0-47.0) L 02/20/17 12:00 MCV 84.6 fl (81.0-99.0) 02/20/17 12:00 MCH 27.6 pg (27.0-31.0) 02/20/17 12:00 MCHC 32.6 g/dL (33.0-37.0) L 02/20/17 12:00 RDW 16.3 % (11.5-14.5) H 02/20/17 12:00 Plt Count 593 K/uL (130-400) H 02/20/17 12:00 MPV 6.4 fl (7.2-11.7) L 02/20/17 12:00 Neut % (Auto) 79.4 % (50.0-75.0) H 02/20/17 12:00 Lymph % (Auto) 13.6 % (20.0-40.0) L 02/20/17 12:00 [place] % (Auto) 6.3 % (0.0-10.0) 02/20/17 12:00 Eos % (Auto) 0.3 % (0.0-4.0) 02/20/17 12:00 Baso % (Auto) 0.4 % (0.0-2.0) 02/20/17 12:00 Neut # 10.1 K/uL (1.8-7.0) H 02/20/17 12:00 Lymph # 1.7 K/uL (1.0-4.3) 02/20/17 12:00 [place] # 0.8 K/uL (0.0-0.8) 02/20/17 12:00 Eos # 0.0 K/uL (0.0-0.7) 02/20/17 12:00 Baso # 0.0 K/uL (0.0-0.2) 02/20/17 12:00 Neutrophils % (Manual) 87 % (42-75) H 02/18/17 18:30 Band Neutrophils % 1 % (0-2) 02/18/17 18:30 Lymphocytes % (Manual) 8 % (20-50) L 02/18/17 18:30 Monocytes % (Manual) 4 % (0-10) 02/18/17 18:30 Platelet Estimate Markedly increased (NORMAL) H 02/18/17 18:30 Large Platelets Present 02/18/17 18:30 Hypochromasia (manual) Slight 02/18/17 18:30 Poikilocytosis (manual Moderate 02/18/17 18:30 Anisocytosis (manual) Moderate 02/18/17 18:30 Microcytosis (manual) Slight 02/18/17 18:30 pO2 37 mm/Hg (30-55) 02/19/17 00:41 VBG pH 7.43 (7.32-7.43) 02/19/17 00:41 VBG pCO2 36 mmHg (40-60) L 02/19/17 00:41 VBG HCO3 24.2 mmol/L 02/19/17 00:41 VBG Total CO2 25.0 mmol/L (22-28) 02/19/17 00:41 VBG O2 Sat (Calc) 71.5 % (40-65) H 02/19/17 00:41 VBG Base Excess -0.1 mmol/L (0.0-2.0) L 02/19/17 00:41 VBG Potassium 3.4 mmol/L (3.6-5.2) L 02/19/17 00:41 Sodium 133.0 mmol/L (132-148) 02/19/17 00:41 Chloride 102.0 mmol/L (98-107) 02/19/17 00:41 Glucose 109 mg/dL (65-105) H 02/19/17 00:41 Lactate 0.8 mmol/L (0.7-2.1) 02/19/17 00:41 FiO2 21.0 % 02/19/17 00:41 Sodium 136 mmol/l (132-148) 02/18/17 18:54 Potassium 3.0 MMOL/L (3.6-5.0) L 02/18/17 18:54 Chloride 97 mmol/L (98-107) L 02/18/17 18:54 Carbon Dioxide 23 mmol/L (22-30) 02/18/17 18:54 Anion Gap 19 (10-20) 02/18/17 18:54 BUN 6 mg/dl (7-17) L 02/18/17 18:54 Creatinine 0.7 mg/dL (0.7-1.2) 02/18/17 18:54 Est GFR ( Amer) > 60 02/18/17 18:54 Est GFR (Non-Af Amer) > 60 02/18/17 18:54 Random Glucose 106 mg/dL (65-105) H 02/18/17 18:54 Calcium 9.3 mg/dL (8.4-10.2) 02/18/17 18:54 Total Bilirubin 0.7 mg/dl (0.2-1.3) 02/18/17 18:54 AST 79 U/L (14-36) H 02/18/17 18:54 ALT 54 U/L (9-52) H 02/18/17 18:54 Alkaline Phosphatase 139 U/L (38-126) H 02/18/17 18:54 Total Protein 7.1 G/DL (6.3-8.2) 02/18/17 18:54 Albumin 3.7 g/dL (3.5-5.0) 02/18/17 18:54 Globulin 3.4 gm/dL (2.2-3.9) 02/18/17 18:54 Albumin/Globulin Ratio 1.1 (1.0-2.1) 02/18/17 18:54 Venous Blood Potassium 3.4 mmol/L (3.6-5.2) L 02/19/17 00:41 Urine Color Straw (YELLOW) 02/18/17 20:26 Urine Clarity Clear (Clear) 02/18/17 20:26 Urine pH 7.0 (5.0-8.0) 02/18/17 20:26 Ur Specific [place] < 1.005 (1.003-1.030) 02/18/17 20:26 Urine Protein Negative mg/dL (NEGATIVE) 02/18/17 20:26 Urine Glucose (UA) Neg mg/dL (Normal) 02/18/17 20:26 Urine Ketones Negative mg/dL (NEGATIVE) 02/18/17 20:26 Urine Blood Negative (NEGATIVE) 02/18/17 20:26 Urine Nitrate Negative (NEGATIVE) 02/18/17 20:26 Urine Bilirubin Negative (NEGATIVE) 02/18/17 20:26 Urine Urobilinogen 0.2-1.0 mg/dL (0.2-1.0) 02/18/17 20:26 Ur Leukocyte Esterase Neg Virgil/uL (Negative) 02/18/17 20:26 Urine RBC (Auto) 2 /hpf (0-3) 02/18/17 20:26 Urine Microscopic WBC 2 /hpf (0-5) 02/18/17 20:26 Ur Squamous Epith Cells 1 /hpf (0-5) 02/18/17 20:26 Urine Bacteria Rare (<OCC) 02/18/17 20:26 Influenza Typ A,B (EIA) Negative for flu a/b (NEGATIVE) 02/18/17 20:35 Discharge Exam - Head Exam Head Exam: ATRAUMATIC Discharge Plan - Follow Up Plan Condition: FAIR Disposition: HOME/ ROUTINE Instructions: Fever in Adults (GEN), Ovarian Abscess (DC) Referrals: Keke Rosas MD [Staff Provider] -
--- NOTE | 2017-02-20 20:10 | CP.PCM.PN ---
<Lisa Rosas - Last Filed: 02/20/17 19:54> Subjective - Date & Time of Evaluation Date of Evaluation: 02/20/17 Time of Evaluation: 19:20 - Subjective Subjective: Informed patient wants to sign out against medical advice. Patient seen and examined at bedside, reports she received antibiotics this AM and was seen by infectious disease specialist but she does not want to stay to continue receiving IV antibiotics. Risks of leaving against medical advice (worsening infection, fever/hypotension sepsis and ) and refusing IV antibiotic treatment as recommended by ID was discussed with patient and her at bedside. Patient insisted she is understands these risks and would like to sign out AMA. Patient was instructed to continue PO antibiotics in meantime, follow up as out patient and ER precautions were reviewed (fever, persistent or worsening abdominal/pelvic pain, weakness/near syncope, nausea or vomiting). ID- Dr. Fletcher was contacted and recommended patient stay for continued IV antibiotic tx, if pt signs out AMA then send home with PO Ciprofloxacin and Doxycycline. Rx in chart. Objective - Vital Signs/Intake and Output Vital Signs (last 24 hours): Temp Pulse Resp BP Pulse Ox 97.8 F 89 18 109/68 97 02/20/17 16:53 02/20/17 16:00 02/20/17 16:00 02/20/17 16:00 02/20/17 16:00 - Medications Medications: Current Medications Acetaminophen (Tylenol 325mg Tab) 650 mg PO Q4 PRN PRN Reason: Fever >100.4 F Last Admin: 02/20/17 15:53 Dose: 650 mg Doxycycline Hyclate 100 mg/ (Sodium Chloride) 100 mls @ 100 mls/hr IVPB Q12 [facility] Last Admin: 02/20/17 08:23 Dose: 100 mls/hr Lactated Ringer's (Lactated Ringer's 500ml) 1,000 mls @ 125 mls/hr IV .Q8H [facility] Last Admin: 02/20/17 09:52 Dose: Not Given Meropenem 1 gm/ Sodium (Chloride) 100 mls @ 100 mls/hr IVPB Q8 [facility] Oxycodone/Acetaminophen (Percocet 5/325 Mg Tab) 1 tab PO Q4 PRN PRN Reason: Pain, Mild (1-3) Stop: 02/22/17 00:27 - Labs Labs: 02/20/17 12:00 02/18/17 18:54 - Constitutional Appears: No Acute Distress (anxious, sitting in bed) Assessment and Plan - Assessment and Plan (Free Text) Assessment: 41 yr old F admitted for tubo-ovarian abscess, receiving IV antibiotics, febrile this AM, ID on consult. Patient wants to sign out AMA. P: -Risks of signing out AMA discussed, pt understands and signed AMA paperwork -Rx for Ciprofloxacin 500 mg PO BID x 14 days, and Doxycycline 100mg PO BID x 14 days -f/u as outpatient with your obgyn within 1 week -ER precautions reviewed -patient seen with Dr. Fowler , case discussed. Lisa Rosas M.D. PGY2 <Tony Fowler - Last Filed: 02/21/17 17:30> Objective - Vital Signs/Intake and Output Vital Signs (last 24 hours): Temp Pulse Resp BP Pulse Ox 99.8 F H 87 18 108/61 97 02/21/17 16:08 02/21/17 16:08 02/21/17 16:08 02/21/17 16:08 02/21/17 16:08 - Medications Medications: Current Medications Acetaminophen (Tylenol 325mg Tab) 650 mg PO Q4 PRN PRN Reason: Fever >100.4 F Last Admin: 02/21/17 00:06 Dose: 650 mg Doxycycline Hyclate 100 mg/ (Sodium Chloride) 100 mls @ 100 mls/hr IVPB Q12 [facility] Last Admin: 02/21/17 11:38 Dose: 100 mls/hr Lactated Ringer's (Lactated Ringer's 500ml) 1,000 mls @ 125 mls/hr IV .Q8H [facility] Last Admin: 02/21/17 16:49 Dose: Not Given Meropenem 1 gm/ Sodium (Chloride) 100 mls @ 100 mls/hr IVPB Q8 [facility] Last Admin: 02/21/17 16:41 Dose: 100 mls/hr Oxycodone/Acetaminophen (Percocet 5/325 Mg Tab) 1 tab PO Q4 PRN PRN Reason: Pain, Mild (1-3) Stop: 02/22/17 00:27 - Labs Labs: 02/21/17 05:40 02/18/17 18:54 Assessment and Plan (1) Pelvic mass in female Status: Acute - Assessment and Plan (Free Text) Plan: OB Hospitalist note: This pt was seen and examined by me. Agree with above note. PIPE
--- NOTE | 2017-02-20 20:22 | CP.PCM.PCO ---
Physician Communication Note - Physician Communication Note Physician Communication Note: Called from [facility], pt has changed her mind, will not leave AMA
[2017-02-21] MEDS: Meropenem 1 GM in Sodium Chloride 0.9% 100 ML IVPB SCH ×5 (00:03→23:59)
[2017-02-21 07:10] LABS: BASO # 0.1 K/uL (0.0-0.2); BASO % 0.4 % (0.0-2.0); EOS # 0.1 K/uL (0.0-0.7); EOS % 0.3 % (0.0-4.0); HEMATOCRIT 28.6 % (34.0-47.0); LYMPH # 2.6 K/uL (1.0-4.3); MEAN CORPUSCULAR HEMOGLOBIN 27.7 pg (27.0-31.0); MEAN CORPUSCULAR HGB CONC 32.6 g/dL (33.0-37.0); MEAN PLATELET VOLUME 6.9 fl (7.2-11.7); MONO # 0.9 K/uL (0.0-0.8); MONO % 5.3 % (0.0-10.0); NEUT # 13.4 K/uL (1.8-7.0); RED CELL DISTRIBUTION WIDTH 16.4 % (11.5-14.5)
--- NOTE | 2017-02-21 13:39 | CP.PCM.CON ---
<Daryn Garcia - Last Filed: 02/21/17 14:49> History of Present Illness - History of Present Illness History of Present Illness: 41 yo F with L sided tubo-ovarian abcess. Pt examined at bedside this AM. She was resting comfortably in her bed watching a show. Overnight, she shares of no significant events. She denies significant pain. She has progressed her diet and eating well. Voids. Her regular bowel movements are every 2-3 days. Denies: lochia, chills, dizziness, nausea, vomiting, chest pain, sob, lightheadedness, or calf pain. Pt ambulating well. Vitals: stable; Afebrile since 00:33. Plan: continue with antibiotics started/continued by ID. Follow WBC Daryn Garcia, PGY1 Past Patient History - Past Medical History & Family History Past Medical History?: Yes - Past Social History Smoking Status: Never Smoked Alcohol: Occasional Drugs: Denies - CARDIAC Hx Cardiac Disorders: No - PULMONARY Hx Respiratory Disorders: No - NEUROLOGICAL Hx Neurological Disorder: No - HEENT Hx HEENT Problems: No - RENAL Hx Chronic Kidney Disease: No - ENDOCRINE/METABOLIC Hx Endocrine Disorders: No - HEMATOLOGICAL/ONCOLOGICAL Hx Blood Disorders: No - INTEGUMENTARY Hx Dermatological Problems: No - MUSCULOSKELETAL/RHEUMATOLOGICAL Hx Falls: No - GASTROINTESTINAL Hx Gastrointestinal Disorders: No - GENITOURINARY/GYNECOLOGICAL Hx Genitourinary Disorders: No - PSYCHIATRIC Hx Substance Use: No - SURGICAL HISTORY Hx Surgeries: Yes Other/Comment: REMOVAL OF ABDOMINAL TUMOR-2002 - ANESTHESIA Hx Anesthesia: Yes Hx Anesthesia Reactions: No Hx Malignant Hyperthermia: No Meds Allergies/Adverse Reactions: Allergies Allergy/AdvReac Type Severity Reaction Status Date / Time No Known Allergies Allergy Verified 02/18/17 18:01 - Medications Medications: Current Medications Acetaminophen (Tylenol 325mg Tab) 650 mg PO Q4 PRN PRN Reason: Fever >100.4 F Last Admin: 02/21/17 00:06 Dose: 650 mg Doxycycline Hyclate 100 mg/ (Sodium Chloride) 100 mls @ 100 mls/hr IVPB Q12 [facility] Last Admin: 02/21/17 11:38 Dose: 100 mls/hr Lactated Ringer's (Lactated Ringer's 500ml) 1,000 mls @ 125 mls/hr IV .Q8H [facility] Last Admin: 02/20/17 09:52 Dose: Not Given Meropenem 1 gm/ Sodium (Chloride) 100 mls @ 100 mls/hr IVPB Q8 [facility] Last Admin: 02/21/17 08:35 Dose: 100 mls/hr Oxycodone/Acetaminophen (Percocet 5/325 Mg Tab) 1 tab PO Q4 PRN PRN Reason: Pain, Mild (1-3) Stop: 02/22/17 00:27 Results - Vital Signs Recent Vital Signs: Last Vital Signs Temp 98.5 F 02/21/17 07:37 Pulse 74 02/21/17 07:37 Resp 18 02/21/17 07:37 BP 95/60 L 02/21/17 07:37 Pulse Ox 96 02/21/17 07:37 - Labs Result Diagrams: 02/21/17 05:40 02/18/17 18:54 Labs: Laboratory Results - last 24 hr 02/21/17 05:40 WBC 17.0 H RBC 3.37 L Hgb 9.3 L Hct 28.6 L MCV 85.0 MCH 27.7 MCHC 32.6 L RDW 16.4 H Plt Count 644 H MPV 6.9 L Neut % (Auto) 79.0 H Lymph % (Auto) 15.0 L [place] % (Auto) 5.3 Eos % (Auto) 0.3 Baso % (Auto) 0.4 Neut # 13.4 H Lymph # 2.6 [place] # 0.9 H Eos # 0.1 Baso # 0.1 <Tony Fowler - Last Filed: 02/21/17 17:33> Meds - Medications Medications: Current Medications Acetaminophen (Tylenol 325mg Tab) 650 mg PO Q4 PRN PRN Reason: Fever >100.4 F Last Admin: 02/21/17 00:06 Dose: 650 mg Doxycycline Hyclate 100 mg/ (Sodium Chloride) 100 mls @ 100 mls/hr IVPB Q12 [facility] Last Admin: 02/21/17 11:38 Dose: 100 mls/hr Lactated Ringer's (Lactated Ringer's 500ml) 1,000 mls @ 125 mls/hr IV .Q8H [facility] Last Admin: 02/21/17 16:49 Dose: Not Given Meropenem 1 gm/ Sodium (Chloride) 100 mls @ 100 mls/hr IVPB Q8 [facility] Last Admin: 02/21/17 16:41 Dose: 100 mls/hr Oxycodone/Acetaminophen (Percocet 5/325 Mg Tab) 1 tab PO Q4 PRN PRN Reason: Pain, Mild (1-3) Stop: 02/22/17 00:27 Results - Vital Signs Recent Vital Signs: Last Vital Signs Temp 99.8 F H 02/21/17 16:08 Pulse 87 02/21/17 16:08 Resp 18 02/21/17 16:08 BP 108/61 02/21/17 16:08 Pulse Ox 97 02/21/17 16:08 - Labs Result Diagrams: 02/21/17 05:40 02/18/17 18:54 Labs: Laboratory Results - last 24 hr 02/21/17 05:40 WBC 17.0 H RBC 3.37 L Hgb 9.3 L Hct 28.6 L MCV 85.0 MCH 27.7 MCHC 32.6 L RDW 16.4 H Plt Count 644 H MPV 6.9 L Neut % (Auto) 79.0 H Lymph % (Auto) 15.0 L [place] % (Auto) 5.3 Eos % (Auto) 0.3 Baso % (Auto) 0.4 Neut # 13.4 H Lymph # 2.6 [place] # 0.9 H Eos # 0.1 Baso # 0.1 Assessment & Plan (1) Pelvic mass in female Status: Acute (2) TOA (tubo-ovarian abscess) Assessment and Plan: Following with ID...continued antibiotic regimen OB Hospitalist note: This pt was seen and examined by me. Agree with above note. MAHNDO Status: Acute - Date & Time Date: 02/21/17 Time: 17:30
--- NOTE | 2017-02-21 14:53 | CP.PCM.PN ---
Subjective - Date & Time of Evaluation Date of Evaluation: 02/21/17 Time of Evaluation: 12:00 - Subjective Subjective: ID Note- pt. seen and examined today . pt. denies any chills, denies any nausea and states is eating better. denies any diarrhea Objective - Vital Signs/Intake and Output Vital Signs (last 24 hours): Temp Pulse Resp BP Pulse Ox 98.5 F 74 18 95/60 L 96 02/21/17 07:37 02/21/17 07:37 02/21/17 07:37 02/21/17 07:37 02/21/17 07:37 - Medications Medications: Current Medications Acetaminophen (Tylenol 325mg Tab) 650 mg PO Q4 PRN PRN Reason: Fever >100.4 F Last Admin: 02/21/17 00:06 Dose: 650 mg Doxycycline Hyclate 100 mg/ (Sodium Chloride) 100 mls @ 100 mls/hr IVPB Q12 [facility] Last Admin: 02/21/17 11:38 Dose: 100 mls/hr Lactated Ringer's (Lactated Ringer's 500ml) 1,000 mls @ 125 mls/hr IV .Q8H [facility] Last Admin: 02/20/17 09:52 Dose: Not Given Meropenem 1 gm/ Sodium (Chloride) 100 mls @ 100 mls/hr IVPB Q8 [facility] Last Admin: 02/21/17 08:35 Dose: 100 mls/hr Oxycodone/Acetaminophen (Percocet 5/325 Mg Tab) 1 tab PO Q4 PRN PRN Reason: Pain, Mild (1-3) Stop: 02/22/17 00:27 - Labs Labs: - Additional Findings Additional findings: - Constitutional Appears: No Acute Distress - Head Exam Head Exam: ATRAUMATIC - Eye Exam Eye Exam: EOMI, PERRL - ENT Exam ENT Exam: Normal Oropharynx - Neck Exam Neck exam: Positive for: Full Rom - Respiratory Exam Respiratory Exam: Clear to Auscultation Bilateral, NORMAL BREATHING PATTERN - Cardiovascular Exam Cardiovascular Exam: RRR, +S1, +S2 - GI/Abdominal Exam GI & Abdominal Exam: Normal Bowel Sounds, Soft Additional comments: old mid-abdominal surgical scar suprapelvic region with distention and mild tenderness to plapation No guarding, no rebound - Extremities Exam Extremities exam: Positive for: normal inspection - Neurological Exam Neurological exam: Alert, Oriented x 3 Laboratory Results - last 72 hr 02/18/17 02/18/17 02/18/17 18:30 18:48 18:54 WBC 21.9 H RBC 3.36 L Hgb 9.2 L Hct 28.4 L MCV 84.4 MCH 27.5 MCHC 32.6 L RDW 16.4 H Plt Count 586 H MPV 6.9 L Neut % (Auto) 84.1 H Lymph % (Auto) 9.5 L [place] % (Auto) 6.2 Eos % (Auto) 0.0 Baso % (Auto) 0.2 Neut # 18.4 H Lymph # 2.1 [place] # 1.4 H Eos # 0.0 Baso # 0.0 Neutrophils % (Manual) 87 H Band Neutrophils % 1 Lymphocytes % (Manual) 8 L Monocytes % (Manual) 4 Platelet Estimate Markedly increased H Large Platelets Present Hypochromasia (manual) Slight Poikilocytosis (manual Moderate Anisocytosis (manual) Moderate Microcytosis (manual) Slight pO2 50 VBG pH 7.49 H VBG pCO2 31 L VBG HCO3 25.5 VBG Total CO2 24.6 VBG O2 Sat (Calc) 89.5 H VBG Base Excess 1.0 VBG Potassium 3.0 L Sodium 131.0 L 136 Chloride 97.0 L 97 L Glucose 113 H Lactate 0.8 FiO2 21.0 Potassium 3.0 L Carbon Dioxide 23 Anion Gap 19 BUN 6 L Creatinine 0.7 Est GFR ( Amer) > 60 Est GFR (Non-Af Amer) > 60 Random Glucose 106 H Calcium 9.3 Total Bilirubin 0.7 AST 79 H ALT 54 H Alkaline Phosphatase 139 H Total Protein 7.1 Albumin 3.7 Globulin 3.4 Albumin/Globulin Ratio 1.1 Venous Blood Potassium 3.0 L Urine Color Urine Clarity Urine pH Ur Specific [place] Urine Protein Urine Glucose (UA) Urine Ketones Urine Blood Urine Nitrate Urine Bilirubin Urine Urobilinogen Ur Leukocyte Esterase Urine RBC (Auto) Urine Microscopic WBC Ur Squamous Epith Cells Urine Bacteria Influenza Typ A,B (EIA) 02/18/17 02/18/17 02/19/17 20:26 20:35 00:41 WBC RBC Hgb Hct MCV MCH MCHC RDW Plt Count MPV Neut % (Auto) Lymph % (Auto) [place] % (Auto) Eos % (Auto) Baso % (Auto) Neut # Lymph # [place] # Eos # Baso # Neutrophils % (Manual) Band Neutrophils % Lymphocytes % (Manual) Monocytes % (Manual) Platelet Estimate Large Platelets Hypochromasia (manual) Poikilocytosis (manual Anisocytosis (manual) Microcytosis (manual) pO2 37 VBG pH 7.43 VBG pCO2 36 L VBG HCO3 24.2 VBG Total CO2 25.0 VBG O2 Sat (Calc) 71.5 H VBG Base Excess -0.1 L VBG Potassium 3.4 L Sodium 133.0 Chloride 102.0 Glucose 109 H Lactate 0.8 FiO2 21.0 Potassium Carbon Dioxide Anion Gap BUN Creatinine Est GFR ( Amer) Est GFR (Non-Af Amer) Random Glucose Calcium Total Bilirubin AST ALT Alkaline Phosphatase Total Protein Albumin Globulin Albumin/Globulin Ratio Venous Blood Potassium 3.4 L Urine Color Straw Urine Clarity Clear Urine pH 7.0 Ur Specific [place] < 1.005 Urine Protein Negative Urine Glucose (UA) Neg Urine Ketones Negative Urine Blood Negative Urine Nitrate Negative Urine Bilirubin Negative Urine Urobilinogen 0.2-1.0 Ur Leukocyte Esterase Neg Urine RBC (Auto) 2 Urine Microscopic WBC 2 Ur Squamous Epith Cells 1 Urine Bacteria Rare Influenza Typ A,B (EIA) Negative for flu a/b 02/19/17 02/20/17 02/21/17 08:00 12:00 05:40 WBC 16.8 H 12.8 H 17.0 H RBC 3.31 L 3.41 L 3.37 L Hgb 9.3 L 9.4 L 9.3 L Hct 28.0 L 28.8 L 28.6 L MCV 84.6 84.6 85.0 MCH 28.2 27.6 27.7 MCHC 33.3 32.6 L 32.6 L RDW 16.4 H 16.3 H 16.4 H Plt Count 546 H 593 H 644 H MPV 6.4 L 6.9 L Neut % (Auto) 79.4 H 79.0 H Lymph % (Auto) 13.6 L 15.0 L [place] % (Auto) 6.3 5.3 Eos % (Auto) 0.3 0.3 Baso % (Auto) 0.4 0.4 Neut # 10.1 H 13.4 H Lymph # 1.7 2.6 [place] # 0.8 0.9 H Eos # 0.0 0.1 Baso # 0.0 0.1 Neutrophils % (Manual) Band Neutrophils % Lymphocytes % (Manual) Monocytes % (Manual) Platelet Estimate Large Platelets Hypochromasia (manual) Poikilocytosis (manual Anisocytosis (manual) Microcytosis (manual) pO2 VBG pH VBG pCO2 VBG HCO3 VBG Total CO2 VBG O2 Sat (Calc) VBG Base Excess VBG Potassium Sodium Chloride Glucose Lactate FiO2 Potassium Carbon Dioxide Anion Gap BUN Creatinine Est GFR ( Amer) Est GFR (Non-Af Amer) Random Glucose Calcium Total Bilirubin AST ALT Alkaline Phosphatase Total Protein Albumin Globulin Albumin/Globulin Ratio Venous Blood Potassium Urine Color Urine Clarity Urine pH Ur Specific [place] Urine Protein Urine Glucose (UA) Urine Ketones Urine Blood Urine Nitrate Urine Bilirubin Urine Urobilinogen Ur Leukocyte Esterase Urine RBC (Auto) Urine Microscopic WBC Ur Squamous Epith Cells Urine Bacteria Influenza Typ A,B (EIA) Microbiology 02/19/17 00:15 Vaginal Gram Stain - Final 02/19/17 00:15 Vaginal Genital Culture - Preliminary 02/18/17 20:00 Blood-Venous Blood Culture - Preliminary NO GROWTH AFTER 48 HOURS 02/18/17 18:30 Blood Blood Culture - Preliminary NO GROWTH AFTER 48 HOURS 02/18/17 20:26 Urine,Clean Catch Urine Culture - Final No Growth (<1,000 CFU/ML) Assessment and Plan (1) Pelvic mass in female Status: Acute (2) TOA (tubo-ovarian abscess) Status: Acute (3) Fever Status: Acute (4) Ovarian cyst Status: Acute (5) Leukocytosis Status: Acute - Assessment and Plan (Free Text) Assessment: A/P- 41 year old female with recent LEEP procedure and also recent saline trnsvaginal US done by her Infertility doctor admitted with fever and leukocytosis and vaginal discharge and pelvic pain. clinically seems to be better. still spiking fever but lower t-max blood cx- neg x 2 urine cx- neg leukocytosis slightly higher today Ct report 1. LEFT adnexal lesion, indeterminate. DDX: Hemorrhagic cyst, endometrioma, TOA, neoplasm. Adjacent tubular structure which may represent dilated fallopian tube may favor TOA. Gynecological consultation is recommended. 2. Liver lesions, new in interval. Suggest MRI. 3. Incidental/non-acute findings are described above. A/P- continue with IV doxy day #3. advise to continue with IV meropenem day #2. pt. may need surgical eval/intervention of the lesion seen on CT specially if her wbc continues to rise and may need to have the saline removed and possible TOA /ovarian cyst removal monitor wbc and repeat blood cx today. all above d/w patient and she verbalizes full understanding of all above.
[2017-02-21] MEDS: Lactated Ringer's 1,000 ML IV SCH ×2 (16:48→16:49)
[2017-02-22 07:53] LABS: BASO # 0.1 K/uL (0.0-0.2); BASO % 0.4 % (0.0-2.0); EOS # 0.1 K/uL (0.0-0.7); EOS % 0.5 % (0.0-4.0); HEMATOCRIT 27.5 % (34.0-47.0); LYMPH # 2.3 K/uL (1.0-4.3); LYMPH % 16.4 % (20.0-40.0); MEAN CELL VOLUME 84.9 fl (81.0-99.0); MEAN CORPUSCULAR HEMOGLOBIN 27.4 pg (27.0-31.0); MEAN CORPUSCULAR HGB CONC 32.3 g/dL (33.0-37.0); MEAN PLATELET VOLUME 6.7 fl (7.2-11.7); MONO % 7.1 % (0.0-10.0); NEUT # 10.6 K/uL (1.8-7.0); NEUT % 75.6 % (50.0-75.0); RED CELL DISTRIBUTION WIDTH 16.7 % (11.5-14.5)
[2017-02-22 09:15] LABS: BLOOD UREA NITROGEN 3 mg/dl (7-17); CALCIUM 9.3 mg/dL (8.4-10.2); CARBON DIOXIDE 27 mmol/L (22-30); CHLORIDE 103 mmol/L (98-107); GFR AFRICAN-AMERICAN > 60; GLUCOSE,RANDOM 87 mg/dL (65-105); POTASSIUM 4.2 MMOL/L (3.6-5.0); SODIUM 142 mmol/l (132-148)
[2017-02-22] MEDS: Lactated Ringer's 1,000 ML IV SCH (09:22)
[2017-02-22] MEDS: Meropenem 1 GM in Sodium Chloride 0.9% 100 ML IVPB SCH ×2 (09:37→17:12)
[2017-02-22 11:20] LABS: RBC URINE 2 /hpf (0-3); URINE BACTERIA RARE (<OCC); URINE BILIRUBIN NEGATIVE (NEGATIVE); URINE BLOOD NEGATIVE (NEGATIVE); URINE COLOR YELLOW (YELLOW); URINE GLUCOSE (UA) NEG (Normal); URINE KETONE NEGATIVE (NEGATIVE); URINE LEUKOCYTE ESTERASE NEG Leu/uL (Negative); URINE PROTEIN NEGATIVE (NEGATIVE); WBC URINE 2 /hpf (0-5)
[2017-02-22 13:48] LABS: PARTIAL THROMBOPLASTIN TIME 29.9 Seconds (25.6-37.1)
--- NOTE | 2017-02-22 15:22 | CP.PCM.PN ---
Subjective - Date & Time of Evaluation Date of Evaluation: 02/22/17 Time of Evaluation: 09:00 - Subjective Subjective: Patient without complaints at this time. Patient reports abdominal pain has lessened. Patient had fever of 102.5 overnight. I discussed with patient options of treatment at this point. Patient has continued to spike fevers despite 4 days of intravenous antibiotics. Patient's white blood cell count has fluctuated throughout hospital course. On ultrasound, patient has 11-12 cm ovarian cyst as well as possible tubular structure adjacent to cyst. I discussed options with patient. I discussed the option of continuing with medical treatment with antibiotics. I also discussed the option of surgical management due to lack of response to antibiotic therapy. After discussion of all options, patient opting for surgical management. Discussed with patient general risks, benefits, alternatives of surgery. Plan for laparoscopy, ovarian cystectomy, drainage and removal of abscess if present. I discussed with patient the risk of possibly having to remove a fallopian tube if it appears to be distorted and nonfunctional. Patient is soon to be starting IVF treatment. All patient questions answered. Operating room notified of case. Plan to do surgery this afternoon after nothing by mouth status achieved Objective - Vital Signs/Intake and Output Vital Signs (last 24 hours): Temp Pulse Resp BP Pulse Ox 98.5 F 72 19 96/58 L 97 02/22/17 07:40 02/22/17 07:40 02/22/17 07:40 02/22/17 07:40 02/22/17 07:40 - Medications Medications: Current Medications Acetaminophen (Tylenol 325mg Tab) 650 mg PO Q4 PRN PRN Reason: Fever >100.4 F Last Admin: 02/21/17 23:46 Dose: 650 mg Doxycycline Hyclate 100 mg/ (Sodium Chloride) 100 mls @ 100 mls/hr IVPB Q12 [facility] Last Admin: 02/22/17 09:38 Dose: 100 mls/hr Lactated Ringer's (Lactated Ringer's 500ml) 1,000 mls @ 125 mls/hr IV .Q8H [facility] Last Admin: 02/22/17 09:22 Dose: Not Given Meropenem 1 gm/ Sodium (Chloride) 100 mls @ 100 mls/hr IVPB Q8 [facility] Last Admin: 02/22/17 09:37 Dose: 100 mls/hr - Labs Labs: 02/22/17 06:30 02/22/17 08:30 PT 17.8 Seconds (9.8-13.1) H 02/22/17 13:00 INR 1.7 (0.9-1.2) H 02/22/17 13:00 APTT 29.9 Seconds (25.6-37.1) 02/22/17 13:00 - Constitutional Appears: Non-toxic - Head Exam Head Exam: ATRAUMATIC - Eye Exam Eye Exam: Normal appearance, PERRL - ENT Exam ENT Exam: Mucous Membranes Moist - Respiratory Exam Respiratory Exam: Clear to Ausculation Bilateral, NORMAL BREATHING PATTERN - Cardiovascular Exam Cardiovascular Exam: REGULAR RHYTHM - GI/Abdominal Exam Additional comments: Soft, diffuse tenderness with deep palpation, nondistended. No rebound, no guarding Assessment and Plan - Assessment and Plan (Free Text) Assessment: Ovarian cyst and possible tubular pelvic structure, possible tubo-ovarian abscess. Persistent fevers despite medical management with IV antibiotics. Plan: Plan for laparoscopy, ovarian cystectomy, possible removal of tube if distorted and diseased. Routine postop observation and care. Continue IV antibiotics
[2017-02-22] MEDS ORDERED: Propofol 10 mg/ml Inj (20 ML) ONE (15:41)
[2017-02-22] MEDS ORDERED: Etomidate 20 mg/10ml Inj IV ONE (15:41)
[2017-02-22] MEDS ORDERED: Succinylcholine 200 mg/10 ml Inj IV ONE (15:41)
[2017-02-22] MEDS ORDERED: Rocuronium 10 mg/ml (5 ml) ONE ×2 (15:41→18:11)
[2017-02-22] MEDS ORDERED: Phenylephrine 10 mg/ml Inj ONE (15:44)
[2017-02-22] MEDS ORDERED: Dexamethasone 4 mg/1 ml ONE (15:46)
[2017-02-22] MEDS ORDERED: Ropivacaine 0.5% 30ML IV ONE (16:06)
[2017-02-22] MEDS ORDERED: Bupivacaine 0.25%-Epinephrine 1:200,000 (30 ml) Inj ONE (16:06)
[2017-02-22] MEDS ORDERED: Midazolam 2 MG/2 ML VIAL ONE (16:37)
[2017-02-22] MEDS ORDERED: Lidocaine 1% Inj (20ml) ONE (16:45)
[2017-02-22] MEDS ORDERED: Bupivacaine 0.5% Inj(30mL) ONE (16:45)
[2017-02-22] MEDS ORDERED: Bupivacaine 0.5% Inj(30mL) IJ ONE (16:50)
[2017-02-22] MEDS ORDERED: Clindamycin 600 MG in Sodium Chloride 0.9% 100 ML IVPB ONE (17:50)
[2017-02-22] MEDS ORDERED: Thrombin Topical 5,000 IU Spray Kit ONE (18:11)
[2017-02-22] MEDS ORDERED: Absorbable Gelatin Sponge Size 100 ONE (18:11)
[2017-02-22] MEDS ORDERED: Neostigmine Methylsulfate 3mg/3ml Syringe IV ONE (18:33)
[2017-02-22] MEDS ORDERED: ePHEDrine 50 mg/ml Inj ONE (18:42)
[2017-02-22] MEDS ORDERED: Lactated Ringer's 1,000 ML IV ONE ×3 (18:51→19:01)
[2017-02-22] MEDS ORDERED: Oxycodone/Acetaminophen 5/325 mg Tab PO PRN (19:10)
[2017-02-22] MEDS ORDERED: HYDROmorphone 0.5 mg/0.5 ml ISec ONE (19:51)
[2017-02-22] MEDS ORDERED: HYDROmorphone 0.5 mg/0.5 ml ISec IVP PRN (19:53)
--- NOTE | 2017-02-22 19:59 | PCM.SURG1 ---
Surgeon's Initial Post Op Note - Surgeon's Notes Surgeon: Danny Drum Dyeing Machine Operator: Janeth Type of Anesthesia: General Endo Pre-Operative Diagnosis: Possible ovarian cyst, possible pelvic abscess, persistent fevers despite medical treatment Operative Findings: Left tubo-ovarian abscess ~14-15cm, normal uterus, normal right tube and ovary Post-Operative Diagnosis: Left tubo-ovarian abscess Operation Performed: Laparoscopy, laparotomy, left salpingectomy, drainage and removal of left pelvic tuboovarian abscess, debriedment of infective and necrotic tissue Specimen/Specimens Removed: 1. Left tube 2. Left pelvic abscess wall and tissue Estimated Blood Loss: EBL {In ML}: 400 (IVF 2500cc LR. UO 150cc) Blood Products Given: N/A Drains Used: No Drains Post-Op Condition: Good Date of Surgery/Procedure: 02/22/17 Time of Surgery/Procedure: 20:01
--- NOTE | 2017-02-22 20:13 | PCM.ANESB5 ---
Transverse Abdominis Block - Transverse Abdominis Plane Date of Procedure: 02/22/17 Anesthesiologist: Morro Pre-Procedure Diagnosis: Tubo-ovarian Abscess Post-Procedure Diagnosis: Same Procedure Performed: Transverse Abdominis Plane Nerve Block Left, Transverse Abdominis Plane Nerve Block Right - Procedure Transverse Abdominis Plane Nerve Block: The procedure was explained to the patient that it is for post-operative pain management and would be performed after surgery. Consent was obtained prior to surgery after a thorough discussion with the patient regarding the benefits and possible complications of transverse abdominis plane block. After the surgery had concluded and before the patient emerged from general anesthesia, time-out was held with the circulating nurse to re-confirm the appropriate block. With the patient in supine position, the ultrasound probe was placed transverse to the abdominal wall at the mid-axillary line above the iliac crest of the appropriate side. The skin, subcutaneous tissue, fat, external oblique muscle, internal oblique muscle, and the transverse abdominis muscle were identified. The general area of the block site was then prepped with Chloraprep. At this point, a # 21-gauge Stimuplex 4-inch needle was inserted posterior to and in plane with the ultrasound probe and directed anteriorly. Needle was advanced under direct ultrasound visualization until it reached the plane between the internal oblique and transverse abdominis muscles. After appropriate placement, 2mL of local anesthetic solution was injected. When the transverse abdominis plane was observed expanding in an ellipsoid way, the rest of the solution was slowly injected. A total of ___25___ mL of __0.25___ % ___ bupivicaine with 1:200,000 epinephrine was used for this block. The needle was then removed and sterile dressing was applied. Similarly, the same procedure was performed on the other side using the same medications. The patient had stable vital signs throughout and had no untoward complications after emergence from general anesthesia in the recovery room.
[2017-02-22 22:46] LABS: BASO % 0.2 % (0.0-2.0); HEMATOCRIT 24.9 % (34.0-47.0); LYMPH # 0.9 K/uL (1.0-4.3); LYMPH % 4.1 % (20.0-40.0); MEAN CELL VOLUME 84.6 fl (81.0-99.0); MEAN CORPUSCULAR HEMOGLOBIN 27.4 pg (27.0-31.0); MEAN CORPUSCULAR HGB CONC 32.4 g/dL (33.0-37.0); MEAN PLATELET VOLUME 6.2 fl (7.2-11.7); MONO # 0.6 K/uL (0.0-0.8); MONO % 2.9 % (0.0-10.0); NEUT % 92.8 % (50.0-75.0); PLATELET COUNT 518 K/uL (130-400); RED CELL DISTRIBUTION WIDTH 16.7 % (11.5-14.5); WHITE BLOOD COUNT 21.6 K/uL (4.8-10.8)
[2017-02-22 23:13] LABS: NEUTROPHIL 90 % (42-75); TOTAL CELLS COUNTED 100
[2017-02-23] MEDS: Meropenem 1 GM in Sodium Chloride 0.9% 100 ML IVPB SCH ×3 (00:21→17:43)
[2017-02-23] MEDS: Lactated Ringer's 1,000 ML IV SCH ×2 (03:30→06:00)
[2017-02-23 06:32] LABS: HEMATOCRIT 23.4 % (34.0-47.0); LYMPH # 1.6 K/uL (1.0-4.3); LYMPH % 8.2 % (20.0-40.0); MEAN CORPUSCULAR HEMOGLOBIN 27.9 pg (27.0-31.0); MEAN CORPUSCULAR HGB CONC 32.8 g/dL (33.0-37.0); MEAN PLATELET VOLUME 6.6 fl (7.2-11.7); MONO # 0.7 K/uL (0.0-0.8); MONO % 3.5 % (0.0-10.0); NEUT # 17.4 K/uL (1.8-7.0); NEUT % 88.3 % (50.0-75.0); RED CELL DISTRIBUTION WIDTH 16.7 % (11.5-14.5); WHITE BLOOD COUNT 19.7 K/uL (4.8-10.8)
--- NOTE | 2017-02-23 13:28 | CP.PCM.PN ---
Subjective - Date & Time of Evaluation Date of Evaluation: 02/23/17 Time of Evaluation: 11:30 - Subjective Subjective: Pt comfortable without complaints. Pain well controlled. Tolerating liquids at this time. Denies, F/C, CP/SoB, N/V. Objective - Vital Signs/Intake and Output Vital Signs (last 24 hours): Temp Pulse Resp BP Pulse Ox 98.3 F 77 18 98/62 L 98 02/23/17 08:46 02/23/17 08:46 02/23/17 08:46 02/23/17 08:46 02/23/17 08:46 Intake and Output: 02/23/17 02/23/17 06:59 18:59 Intake Total 1700 Output Total 250 Balance 1450 - Medications Medications: Current Medications Acetaminophen (Tylenol 325mg Tab) 650 mg PO Q4 PRN PRN Reason: Fever >100.4 F Last Admin: 02/21/17 23:46 Dose: 650 mg Doxycycline Hyclate 100 mg/ (Sodium Chloride) 100 mls @ 100 mls/hr IVPB Q12 [facility] Last Admin: 02/23/17 08:40 Dose: 100 mls/hr Lactated Ringer's (Lactated Ringer's 500ml) 1,000 mls @ 125 mls/hr IV .Q8H [facility] Last Admin: 02/23/17 03:30 Dose: Not Given Meropenem 1 gm/ Sodium (Chloride) 100 mls @ 100 mls/hr IVPB Q8 [facility] Last Admin: 02/23/17 10:30 Dose: 100 mls/hr Lactated Ringer's (Lactated Ringer's) 1,000 mls @ 100 mls/hr IV .Q10H [facility] Last Admin: 02/23/17 06:00 Dose: Not Given Ketorolac Tromethamine (Toradol) 30 mg IVP Q6 PRN PRN Reason: Pain, moderate (4-7) Ondansetron HCl (Zofran Inj) 4 mg IVP Q4 PRN PRN Reason: Nausea/Vomiting Last Admin: 02/23/17 11:32 Dose: 4 mg Oxycodone/Acetaminophen (Percocet 5/325 Mg Tab) 1 tab PO Q6 PRN PRN Reason: Pain, severe (8-10) Stop: 02/25/17 19:11 - Labs Labs: 02/23/17 05:50 02/22/17 08:30 PT 17.8 Seconds (9.8-13.1) H 02/22/17 13:00 INR 1.7 (0.9-1.2) H 02/22/17 13:00 APTT 29.9 Seconds (25.6-37.1) 02/22/17 13:00 - Constitutional Appears: Well, No Acute Distress - Head Exam Head Exam: ATRAUMATIC - Eye Exam Eye Exam: Normal appearance, PERRL - ENT Exam ENT Exam: Mucous Membranes Moist - Respiratory Exam Respiratory Exam: Clear to Ausculation Bilateral, NORMAL BREATHING PATTERN - Cardiovascular Exam Cardiovascular Exam: REGULAR RHYTHM - GI/Abdominal Exam Additional comments: Soft/ND/approp diffuse tenderness Inc C/D/I No erythema, swelling, discharge Umbilical part site C/D/I - Extremities Exam Extremities Exam: Normal Inspection. absent: Calf Tenderness, Tenderness Assessment and Plan - Assessment and Plan (Free Text) Assessment: POD#1 s/p laparoscopy, laparotomy, Lt salpingectomy, removal of Lt TOA -- recovering well Plan: OOB ambulate Pain control Continue Abx Advance diet as tolerated Venodynes while in bed Incentive Manav Continue observation. Discussed all surgical findings with patient and discussed current plan. All questions answered
--- NOTE | 2017-02-23 18:56 | CP.PCM.PN ---
Subjective - Date & Time of Evaluation Date of Evaluation: 02/23/17 Time of Evaluation: 18:56 - Subjective Subjective: ID Note- Pt. seen and examined today. Pt. s/p Laparoscopy, laparotomy, left salpingectomy, drainage and removal of left pelvic tuboovarian abscess, debriedment of infective and necrotic tissue. pod #1 she states she feels much better post surgery . denies any fever. Objective - Vital Signs/Intake and Output Vital Signs (last 24 hours): Temp Pulse Resp BP Pulse Ox 98.3 F 85 18 101/63 96 02/23/17 16:54 02/23/17 16:54 02/23/17 16:54 02/23/17 16:54 02/23/17 16:54 Intake and Output: 02/23/17 02/23/17 06:59 18:59 Intake Total 1700 Output Total 250 Balance 1450 - Medications Medications: Current Medications Acetaminophen (Tylenol 325mg Tab) 650 mg PO Q4 PRN PRN Reason: Fever >100.4 F Last Admin: 02/21/17 23:46 Dose: 650 mg Doxycycline Hyclate 100 mg/ (Sodium Chloride) 100 mls @ 100 mls/hr IVPB Q12 [facility] Last Admin: 02/23/17 08:40 Dose: 100 mls/hr Lactated Ringer's (Lactated Ringer's 500ml) 1,000 mls @ 125 mls/hr IV .Q8H [facility] Last Admin: 02/23/17 03:30 Dose: Not Given Meropenem 1 gm/ Sodium (Chloride) 100 mls @ 100 mls/hr IVPB Q8 [facility] Last Admin: 02/23/17 17:43 Dose: 100 mls/hr Lactated Ringer's (Lactated Ringer's) 1,000 mls @ 100 mls/hr IV .Q10H [facility] Last Admin: 02/23/17 06:00 Dose: Not Given Ketorolac Tromethamine (Toradol) 30 mg IVP Q6 PRN PRN Reason: Pain, moderate (4-7) Last Admin: 02/23/17 16:04 Dose: 30 mg Ondansetron HCl (Zofran Inj) 4 mg IVP Q4 PRN PRN Reason: Nausea/Vomiting Last Admin: 02/23/17 11:32 Dose: 4 mg Oxycodone/Acetaminophen (Percocet 5/325 Mg Tab) 1 tab PO Q6 PRN PRN Reason: Pain, severe (8-10) Stop: 02/25/17 19:11 - Labs Labs: - Constitutional Appears: No Acute Distress - Head Exam Head Exam: ATRAUMATIC - Eye Exam Eye Exam: EOMI, PERRL - ENT Exam ENT Exam: Normal Oropharynx - Neck Exam Neck Exam: Full ROM - Respiratory Exam Respiratory Exam: Clear to Ausculation Bilateral, NORMAL BREATHING PATTERN - Cardiovascular Exam Cardiovascular Exam: RRR, +S1, +S2 - GI/Abdominal Exam GI & Abdominal Exam: Soft, Normal Bowel Sounds Additional comments: lower abdomen/pelvic surgical site clean/dry/intact minimal tenderness only No guarding, no rebound - Extremities Exam Extremities Exam: Normal Inspection - Neurological Exam Neurological Exam: Alert, Awake, Oriented x3 - Additional Findings Additional findings: Laboratory Results - last 72 hr 02/19/17 02/21/17 02/22/17 00:15 05:40 06:30 WBC 17.0 H 14.0 H RBC 3.37 L 3.24 L Hgb 9.3 L 8.9 L Hct 28.6 L 27.5 L MCV 85.0 84.9 MCH 27.7 27.4 MCHC 32.6 L 32.3 L RDW 16.4 H 16.7 H Plt Count 644 H 568 H MPV 6.9 L 6.7 L Neut % (Auto) 79.0 H 75.6 H Lymph % (Auto) 15.0 L 16.4 L [place] % (Auto) 5.3 7.1 Eos % (Auto) 0.3 0.5 Baso % (Auto) 0.4 0.4 Neut # 13.4 H 10.6 H Lymph # 2.6 2.3 [place] # 0.9 H 1.0 H Eos # 0.1 0.1 Baso # 0.1 0.1 Neutrophils % (Manual) Band Neutrophils % Lymphocytes % (Manual) Monocytes % (Manual) Platelet Estimate Poikilocytosis (manual Anisocytosis (manual) PT INR APTT Sodium Potassium Chloride Carbon Dioxide Anion Gap BUN Creatinine Est GFR ( Amer) Est GFR (Non-Af Amer) Random Glucose Calcium Urine Color Urine Clarity Urine pH Ur Specific [place] Urine Protein Urine Glucose (UA) Urine Ketones Urine Blood Urine Nitrate Urine Bilirubin Urine Urobilinogen Ur Leukocyte Esterase Urine RBC (Auto) Urine Microscopic WBC Ur Squamous Epith Cells Urine Bacteria C.trachomatis RNA (TMA) Not detected N.gonorrhoeae RNA (TMA) Not detected 02/22/17 02/22/17 02/22/17 08:30 11:00 13:00 WBC RBC Hgb Hct MCV MCH MCHC RDW Plt Count MPV Neut % (Auto) Lymph % (Auto) [place] % (Auto) Eos % (Auto) Baso % (Auto) Neut # Lymph # [place] # Eos # Baso # Neutrophils % (Manual) Band Neutrophils % Lymphocytes % (Manual) Monocytes % (Manual) Platelet Estimate Poikilocytosis (manual Anisocytosis (manual) PT 17.8 H INR 1.7 H APTT 29.9 Sodium 142 Potassium 4.2 Chloride 103 Carbon Dioxide 27 Anion Gap 17 BUN 3 L Creatinine 0.6 L Est GFR ( Amer) > 60 Est GFR (Non-Af Amer) > 60 Random Glucose 87 Calcium 9.3 Urine Color Yellow Urine Clarity Slighty-cloudy Urine pH 7.0 Ur Specific [place] 1.010 Urine Protein Negative Urine Glucose (UA) Neg Urine Ketones Negative Urine Blood Negative Urine Nitrate Negative Urine Bilirubin Negative Urine Urobilinogen 4.0 H Ur Leukocyte Esterase Neg Urine RBC (Auto) 2 Urine Microscopic WBC 2 Ur Squamous Epith Cells 1 Urine Bacteria Rare C.trachomatis RNA (TMA) N.gonorrhoeae RNA (TMA) 02/22/17 02/23/17 22:30 05:50 WBC 21.6 H D 19.7 H RBC 2.95 L 2.76 L Hgb 8.1 L 7.7 L Hct 24.9 L 23.4 L MCV 84.6 85.0 MCH 27.4 27.9 MCHC 32.4 L 32.8 L RDW 16.7 H 16.7 H Plt Count 518 H 497 H MPV 6.2 L 6.6 L Neut % (Auto) 92.8 H 88.3 H Lymph % (Auto) 4.1 L 8.2 L [place] % (Auto) 2.9 3.5 Eos % (Auto) 0.0 0.0 Baso % (Auto) 0.2 0.0 Neut # 20.0 H 17.4 H Lymph # 0.9 L 1.6 [place] # 0.6 0.7 Eos # 0.0 0.0 Baso # 0.0 0.0 Neutrophils % (Manual) 90 H Band Neutrophils % 4 H Lymphocytes % (Manual) 4 L Monocytes % (Manual) 2 Platelet Estimate Slightly increased H Poikilocytosis (manual Slight Anisocytosis (manual) Slight PT INR APTT Sodium Potassium Chloride Carbon Dioxide Anion Gap BUN Creatinine Est GFR ( Amer) Est GFR (Non-Af Amer) Random Glucose Calcium Urine Color Urine Clarity Urine pH Ur Specific [place] Urine Protein Urine Glucose (UA) Urine Ketones Urine Blood Urine Nitrate Urine Bilirubin Urine Urobilinogen Ur Leukocyte Esterase Urine RBC (Auto) Urine Microscopic WBC Ur Squamous Epith Cells Urine Bacteria C.trachomatis RNA (TMA) N.gonorrhoeae RNA (TMA) Microbiology 02/18/17 20:00 Blood-Venous Blood Culture - Final NO GROWTH AFTER 5 DAYS 02/18/17 20:00 Blood-Venous Gram Stain - Final TEST NOT PERFORMED 02/18/17 18:30 Blood Blood Culture - Final NO GROWTH AFTER 5 DAYS 02/18/17 18:30 Blood Gram Stain - Final TEST NOT PERFORMED 02/22/17 Unknown Other: Please Indicate Gram Stain - Final 02/21/17 16:30 Blood-Venous Blood Culture - Preliminary NO GROWTH AFTER 48 HOURS 02/21/17 17:00 Blood-Venous Blood Culture - Preliminary NO GROWTH AFTER 48 HOURS 02/19/17 00:15 Vaginal Gram Stain - Final 02/19/17 00:15 Vaginal Genital Culture - Final 02/18/17 20:26 Urine,Clean Catch Urine Culture - Final No Growth (<1,000 CFU/ML) Assessment and Plan (1) Pelvic mass in female Status: Acute (2) TOA (tubo-ovarian abscess) Status: Acute (3) Fever Status: Acute (4) Ovarian cyst Status: Acute (5) Leukocytosis Status: Acute - Assessment and Plan (Free Text) Assessment: A/P- 41 year old female with recent LEEP procedure and also recent saline transvaginal US done by her Infertility doctor admitted with fever and leukocytosis and vaginal discharge and pelvic pain. POD#1 s/p laparoscopy, laparotomy, Lt salpingectomy, removal of Lt TOA clinically better today. afebrile past 24 hours. continues to have high wbc on IV abx. blood cx- neg x 4 vaginal cx- neg urine GC/Chlamydia- neg wound cx- pending A/P- continue with IV doxy day #5. advise to continue with IV meropenem day #4. advise to add IV vanco today. check cbc in am. all above d/w patient and she verbalizes full understanding of all above.
[2017-02-24] MEDS: Meropenem 1 GM in Sodium Chloride 0.9% 100 ML IVPB SCH ×3 (00:30→17:27)
[2017-02-24] MEDS: Lactated Ringer's 1,000 ML IV SCH ×3 (04:49→22:00)
[2017-02-24 06:30] LABS: BASO % 0.3 % (0.0-2.0); EOS # 0.1 K/uL (0.0-0.7); EOS % 0.8 % (0.0-4.0); HEMATOCRIT 23.6 % (34.0-47.0); LYMPH % 17.3 % (20.0-40.0); MEAN CELL VOLUME 86.2 fl (81.0-99.0); MEAN CORPUSCULAR HEMOGLOBIN 27.9 pg (27.0-31.0); MEAN CORPUSCULAR HGB CONC 32.4 g/dL (33.0-37.0); MEAN PLATELET VOLUME 6.8 fl (7.2-11.7); MONO # 0.5 K/uL (0.0-0.8); MONO % 4.3 % (0.0-10.0); NEUT # 8.7 K/uL (1.8-7.0); NEUT % 77.3 % (50.0-75.0); RED CELL DISTRIBUTION WIDTH 16.5 % (11.5-14.5); WHITE BLOOD COUNT 11.3 K/uL (4.8-10.8)
--- NOTE | 2017-02-24 06:44 | OP ---
PROCEDURE DATE: 02/22/2017 PREOPERATIVE DIAGNOSES: Possible ovarian cyst, possible pelvic abscess, persistent fevers despite medical treatment. POSTOPERATIVE DIAGNOSIS: Left tubo-ovarian abscess approximately 14-15 cm. OPERATIVE FINDINGS: Left tubo-ovarian abscess approximately 14-15 cm, normal uterus, normal right tube and ovary. OPERATIONS PERFORMED: Laparoscopy, laparotomy, left salpingectomy, removal of left ovarian abscess and debridement of infected and necrotic tissue. SURGEON: Naseem Delgado MD TURNING LATHE TENDER: Dr. Tony Fowler. Dr. Fowler was present from the beginning of the procedure to the end of procedure. Dr. Fowler was integral in exposing the surgical field, controlling intraoperative bleeding, and surgical removal of pelvic abscess. ANESTHESIA: General. ANESTHESIOLOGIST: ESTIMATED BLOOD LOSS: 400 mL. FLUIDS: 2500 mL lactated Ringer's. URINE OUTPUT: 150 mL of clear urine at the end of procedure. DESCRIPTION OF PROCEDURE: The patient was taken to the operating room, where general anesthesia was found to be adequate. The patient was prepped and draped in normal sterile fashion in the dorsal supine position with leftward tilt. An approximately 1 cm incision was placed at the umbilicus. The Veress needle was placed through the umbilical incision into the abdominal cavity. After proper placement ensured, the abdominal cavity was insufflated with CO2 gas to a pressure of 15 mmHg. A 5-mm trocar was placed through the umbilical incision into the abdominal cavity. The laparoscope was placed through the umbilical trocar. The abdomen and pelvis were explored. Due to the size of the pelvic abscess, decision at this point was made for laparotomy. The laparoscope was removed from the patient. A Pfannenstiel skin incision was made with a scalpel. This was carried down through to the underlying layer of fascia with the scalpel. Midline defect was made in fascial layer with a scalpel. The fascial incision was then extended bilaterally sharply with curved Dhillon scissors. The fascial layer was from the underlying rectus muscles, both bluntly and sharply with curved Dhillon scissors. The rectus muscles were at the midline. The peritoneum was then identified, tented up with Leslie clamps x2, entered sharply with Metzenbaum scissors. This peritoneal incision was then extended superiorly and inferiorly with good visualization of the urinary bladder. The pelvic abscess was found at the left side of the uterus. The fallopian tube was removed with LigaSure device under direct visualization. The left ovary was encompassed in a large pelvic abscess approximately 14-15 cm. An incision was made at the anterior surface of the pelvic abscess. Copious amount of pustular fluid was removed. Approximately 400 mL of fluid was removed from abscess. The abdomen and pelvis as well as the abscess was irrigated with copious amounts of warm normal saline. Necrotic tissue found at the anterior surface of the abscess was removed bluntly and sharply. After removal of abscess wall tissue, multiple sutures were placed on abscess wall to control bleeding. After placement of sutures, the abdomen and pelvis were again irrigated with copious amounts of warm normal saline. Five pieces of Gelfoam were placed around the abscess site to control bleeding. At this point, the surgical pedicle was found to be hemostatic. All instruments were removed from the patient. The peritoneal layer was closed with a running stitch of 2-0 chromic. The rectus muscles were re-approximated with a running stitch of 2-0 chromic. The facial layer was closed with a running stitch of 0 Vicryl. Subcutaneous tissue was closed with a running stitch of 3-0 plain. The Pfannenstiel skin incision was closed with a subcutaneous stitch of 3-0 Vicryl. The umbilical port site was closed with Dermabond. The patient tolerated the procedure well. All sponge, lap, and needle counts were correct x2. The patient was given her meropenem dose just prior to the beginning of the procedure. Intraoperatively, the patient also received a dose of clindamycin. The patient tolerated the procedure well. There were no complications. The patient was taken to the recovery room in awake and stable condition. Naseem Delgado MD
--- NOTE | 2017-02-24 10:50 | CP.PCM.PN ---
Subjective - Date & Time of Evaluation Date of Evaluation: 02/24/17 Time of Evaluation: 10:45 - Subjective Subjective: She feels better today. No BM. Iniciosnal pain relieved with pain meds Objective - Vital Signs/Intake and Output Vital Signs (last 24 hours): Temp Pulse Resp BP Pulse Ox 98.8 F 88 20 100/65 98 02/24/17 08:32 02/24/17 08:32 02/24/17 08:32 02/24/17 08:32 02/24/17 08:32 - Medications Medications: Current Medications Acetaminophen (Tylenol 325mg Tab) 650 mg PO Q4 PRN PRN Reason: Fever >100.4 F Last Admin: 02/21/17 23:46 Dose: 650 mg Doxycycline Hyclate 100 mg/ (Sodium Chloride) 100 mls @ 100 mls/hr IVPB Q12 [facility] [place] Last Admin: 02/24/17 10:00 Dose: 100 mls/hr Lactated Ringer's (Lactated Ringer's 500ml) 1,000 mls @ 125 mls/hr IV .Q8H [facility] [place] Last Admin: 02/24/17 04:49 Dose: Not Given Meropenem 1 gm/ Sodium (Chloride) 100 mls @ 100 mls/hr IVPB Q8 [facility] [place] Last Admin: 02/24/17 08:51 Dose: 100 mls/hr Lactated Ringer's (Lactated Ringer's) 1,000 mls @ 100 mls/hr IV .Q10H [facility] [place] Last Admin: 02/24/17 04:49 Dose: Not Given Vancomycin HCl 1 gm/ Sodium (Chloride) 250 mls @ 166.667 mls/hr IVPB DAILY [facility] [place] Last Admin: 02/23/17 22:30 Dose: 166.667 mls/hr Ketorolac Tromethamine (Toradol) 30 mg IVP Q6 PRN PRN Reason: Pain, moderate (4-7) Last Admin: 02/24/17 00:26 Dose: 30 mg Ondansetron HCl (Zofran Inj) 4 mg IVP Q4 PRN PRN Reason: Nausea/Vomiting Last Admin: 02/23/17 11:32 Dose: 4 mg Oxycodone/Acetaminophen (Percocet 5/325 Mg Tab) 1 tab PO Q6 PRN PRN Reason: Pain, severe (8-10) Stop: 10/04/17 19:11 - Labs Labs: 02/24/17 05:45 02/22/17 08:30 PT 17.8 Seconds (9.8-13.1) H 02/22/17 13:00 INR 1.7 (0.9-1.2) H 02/22/17 13:00 APTT 29.9 Seconds (25.6-37.1) 02/22/17 13:00 - Head Exam Head Exam: NORMAL INSPECTION - Respiratory Exam Respiratory Exam: NORMAL BREATHING PATTERN - Cardiovascular Exam Cardiovascular Exam: REGULAR RHYTHM - GI/Abdominal Exam GI & Abdominal Exam: Normal Bowel Sounds Additional comments: Incison clean dry and intact; sterisptrips in place Assessment and Plan (1) Pelvic mass in female Status: Resolved (2) TOA (tubo-ovarian abscess) Status: Resolved - Assessment and Plan (Free Text) Assessment: S/P laparotomy for TOA/drained and improving Plan: will contact ID about out pt meds
[2017-02-24] MEDS ORDERED: Chlorhexidine Gluconate 1 APPL/PKT TP ONE (16:47)
[2017-02-25] MEDS: Meropenem 1 GM in Sodium Chloride 0.9% 100 ML IVPB SCH ×2 (00:43→08:31)
[2017-02-25] MEDS: Lactated Ringer's 1,000 ML IV SCH (01:45)
[2017-02-25 07:21] VITALS: BP 101/65; PULSE 90; RESP 18; TEMP 98.3; O2SAT 97
--- NOTE | 2017-02-25 11:40 | CP.PCM.PN ---
Subjective - Date & Time of Evaluation Date of Evaluation: 02/25/17 Time of Evaluation: 12:00 - Subjective Subjective: ID Note- Pt. seen and examined today. Pt. states she feels very good and she denies any fever or chills. States she is going home today. she deos not wish to have any more Iv antibiotics as she is a hard stick . Objective - Vital Signs/Intake and Output Vital Signs (last 24 hours): Temp Pulse Resp BP Pulse Ox 98.3 F 90 18 101/65 97 02/25/17 07:20 02/25/17 07:20 02/25/17 07:20 02/25/17 07:20 02/25/17 07:20 - Medications Medications: Current Medications Acetaminophen (Tylenol 325mg Tab) 650 mg PO Q4 PRN PRN Reason: Fever >100.4 F Last Admin: 02/21/17 23:46 Dose: 650 mg Acetaminophen (Tylenol 325mg Tab) 650 mg PO Q4 PRN PRN Reason: Pain, Mild (1-3) Last Admin: 02/24/17 16:05 Dose: 650 mg Lactated Ringer's (Lactated Ringer's 500ml) 1,000 mls @ 125 mls/hr IV .Q8H [facility] Last Admin: 02/25/17 01:45 Dose: Not Given Meropenem 1 gm/ Sodium (Chloride) 100 mls @ 100 mls/hr IVPB Q8 [facility] Last Admin: 02/25/17 08:31 Dose: Not Given Lactated Ringer's (Lactated Ringer's) 1,000 mls @ 100 mls/hr IV .Q10H [facility] Last Admin: 02/24/17 22:00 Dose: Not Given Vancomycin HCl 1 gm/ Sodium (Chloride) 250 mls @ 166.667 mls/hr IVPB DAILY [facility] Last Admin: 02/25/17 08:32 Dose: Not Given Ketorolac Tromethamine (Toradol) 30 mg IVP Q6 PRN PRN Reason: Pain, moderate (4-7) Last Admin: 02/24/17 00:26 Dose: 30 mg Ondansetron HCl (Zofran Inj) 4 mg IVP Q4 PRN PRN Reason: Nausea/Vomiting Last Admin: 02/23/17 11:32 Dose: 4 mg Oxycodone/Acetaminophen (Percocet 5/325 Mg Tab) 1 tab PO Q6 PRN PRN Reason: Pain, severe (8-10) Stop: 02/25/17 19:11 - Labs Labs: - Constitutional Appears: No Acute Distress - Head Exam Head Exam: ATRAUMATIC - Eye Exam Eye Exam: EOMI, PERRL - ENT Exam ENT Exam: Normal Oropharynx - Neck Exam Neck Exam: Full ROM - Respiratory Exam Respiratory Exam: Clear to Ausculation Bilateral, NORMAL BREATHING PATTERN - Cardiovascular Exam Cardiovascular Exam: RRR, +S1, +S2 - GI/Abdominal Exam GI & Abdominal Exam: Soft, Normal Bowel Sounds Additional comments: lower abd/pelvic surgical site clean/dry/intact no discharge/no erythema minimal tenderness with palpation only \no guarding, no rebound - Extremities Exam Extremities Exam: Normal Inspection - Neurological Exam Neurological Exam: Alert, Awake, Oriented x3 - Additional Findings Additional findings: Laboratory Results - last 72 hr 02/19/17 02/22/17 02/22/17 00:15 13:00 22:30 WBC 21.6 H D RBC 2.95 L Hgb 8.1 L Hct 24.9 L MCV 84.6 MCH 27.4 MCHC 32.4 L RDW 16.7 H Plt Count 518 H MPV 6.2 L Neut % (Auto) 92.8 H Lymph % (Auto) 4.1 L [place] % (Auto) 2.9 Eos % (Auto) 0.0 Baso % (Auto) 0.2 Neut # 20.0 H Lymph # 0.9 L [place] # 0.6 Eos # 0.0 Baso # 0.0 Neutrophils % (Manual) 90 H Band Neutrophils % 4 H Lymphocytes % (Manual) 4 L Monocytes % (Manual) 2 Platelet Estimate Slightly increased H Poikilocytosis (manual Slight Anisocytosis (manual) Slight PT 17.8 H INR 1.7 H APTT 29.9 C.trachomatis RNA (TMA) Not detected N.gonorrhoeae RNA (TMA) Not detected 02/23/17 02/23/17 02/24/17 05:50 14:00 05:45 WBC 19.7 H 11.3 H RBC 2.76 L 2.73 L Hgb 7.7 L 7.6 L Hct 23.4 L 23.6 L MCV 85.0 86.2 MCH 27.9 27.9 MCHC 32.8 L 32.4 L RDW 16.7 H 16.5 H Plt Count 497 H 462 H MPV 6.6 L 6.8 L Neut % (Auto) 88.3 H 77.3 H Lymph % (Auto) 8.2 L 17.3 L [place] % (Auto) 3.5 4.3 Eos % (Auto) 0.0 0.8 Baso % (Auto) 0.0 0.3 Neut # 17.4 H 8.7 H Lymph # 1.6 2.0 [place] # 0.7 0.5 Eos # 0.0 0.1 Baso # 0.0 0.0 Neutrophils % (Manual) Band Neutrophils % Lymphocytes % (Manual) Monocytes % (Manual) Platelet Estimate Poikilocytosis (manual Anisocytosis (manual) PT INR APTT C.trachomatis RNA (TMA) Not detected N.gonorrhoeae RNA (TMA) Not detected Microbiology 02/22/17 Unknown Other: Please Indicate Gram Stain - Final 02/22/17 Unknown Other: Please Indicate Wound Culture - Preliminary Gram Negative Zach 02/21/17 16:30 Blood-Venous Blood Culture - Preliminary NO GROWTH AFTER 3 DAYS 02/21/17 17:00 Blood-Venous Blood Culture - Preliminary NO GROWTH AFTER 3 DAYS 02/18/17 20:00 Blood-Venous Blood Culture - Final NO GROWTH AFTER 5 DAYS 02/18/17 20:00 Blood-Venous Gram Stain - Final TEST NOT PERFORMED 02/18/17 18:30 Blood Blood Culture - Final NO GROWTH AFTER 5 DAYS 02/18/17 18:30 Blood Gram Stain - Final TEST NOT PERFORMED 02/19/17 00:15 Vaginal Gram Stain - Final 02/19/17 00:15 Vaginal Genital Culture - Final 02/18/17 20:26 Urine,Clean Catch Urine Culture - Final No Growth (<1,000 CFU/ML) Assessment and Plan (1) Pelvic mass in female Status: Resolved (2) TOA (tubo-ovarian abscess) Status: Resolved (3) Fever Status: Acute (4) Ovarian cyst Status: Acute (5) Leukocytosis Status: Acute - Assessment and Plan (Free Text) Assessment: A/P- 41 year old female with recent LEEP procedure and also recent saline transvaginal US done by her Infertility doctor admitted with fever and leukocytosis and vaginal discharge and pelvic pain. POD#3 s/p laparoscopy, laparotomy, Lt salpingectomy, removal of Lt TOA clinically much better today. afebrile past 72 hours. leukocytosis much lower, almost resolved blood cx- neg x 4 vaginal cx- neg urine GC/Chlamydia- neg wound cx- prelim GNR A/P- has completed 8 days of IV doxy and 7 days of IV meropenem and 2 days of IV vancomycin. since pt. is clinically much better and afebrile and leukocytosis has resolved she can be d/c home on oral antibiotics for another 7-10 days. advise to be d/c on clindamycin 600 mg q8 hours along with doxycycline 100 mg BID and cipro 500 mg BID for 7 days. pt. advised to f/u with me next week in office as outpatient. will f/u the wound cx result. pt. also advised to f/u with her Special Loan Officer . all above d/w . all above d/w patient and she verbalizes full understanding of all above and agrees with above plan of care.
== END 2017-02-25 14:10 | disposition home or self-care (01) | DRG 743 ==
LOC: H.ER 17:56 → H.ERHOLD 02-19 00:07 → H.MEDSURG1 02-19 01:33
PROVIDERS: ADMIT Obstetrics & Gynecology Gynecology; ATTEND Obstetrics & Gynecology Gynecology
PROC: 0WJJ4ZZ Inspection of Pelvic Cavity, Percutaneous Endoscopic Approach (ICD-10-PCS; 2017-02-22)
PROC: 0UB60ZZ Excision of Left Fallopian Tube, Open Approach (ICD-10-PCS; principal; 2017-02-22 15:30)
PROC: 0UB10ZZ Excision of Left Ovary, Open Approach (ICD-10-PCS; 2017-02-22 15:30)
DX: N70.93 Salpingitis and oophoritis, unspecified (principal); D72.829 Elevated white blood cell count, unspecified; N83.209 Unspecified ovarian cyst, unspecified side; K76.9 Liver disease, unspecified